=== PATIENT | male | born 1950 | race Caucasian/White ===

== ENCOUNTER 2020-06-12 13:02 | Inpatient (IN) ==
--- NOTE | 2020-06-12 15:11 | Emergency Department Note ---
Impression & Plan Cirrhosis, Ascites, Hyperbilirubinemia, Transaminitis, JOHANN (acute kidney injury), Leukocytosis ED Provider Note NAME: LUIGI GREEN AGE: 70 SEX: M : 1950 ARRIVES VIA: Walk-In INFORMANT: Patient ED PROVIDER(S): Chucky Herrera DO CHIEF COMPLAINT: Abdominal swelling HPI: Patient is a 70-year-old male who presents to the ER for swelling in his abdomen and turning yellow. Notes the swelling has been present for the past 1.5 to 2 weeks. He has had some increased shortness of breath. He notes that he used to drink about 1-2 beers a day intermittently for several years. He drank no more than that. He denies any headache or change in vision. No chest pain. Admits to abdominal fullness but no pain. No dysuria urgency or frequency. He does admit to feeling weak and rundown. No recent trips or travel. No cough or runny nose. No loss of taste or smell. No dark tarry stools. No bright red blood per rectum. No vomiting blood. ROS: See above HPI for pertinent positives & negatives. A total of 10 systems reviewed and were otherwise negative. PAST MEDICAL HISTORY:See Below PAST SURGICAL HISTORY:See Below FAMILY HISTORY:See Below SOCIAL HISTORY:See Below HOME MEDICATIONS:See Below ALLERGIES:See Below VITALS:See Below PHYSICAL EXAMINATION: GENERAL: Sitting up in bed, alert, well appearing, well nourished, no distress, non-toxic EYE EXAM: normal conjunctiva. PERRL and EOM's grossly intact. OROPHARYNX: mask in place NECK: supple, no nuchal rigidity, no adenopathy, non-tender LUNGS: Clear to auscultation. Normal chest wall mechanics HEART: no murmurs, S1 normal and S2 normal ABDOMEN: Full and distended but nontender, positive fluid wave, normo-active bowel sounds, no rebound or guarding. UPPER EXTREMITIES: upper extremities are grossly normal. LOWER EXTREMITIES: No pitting edema. NEURO EXAM: Normal sensorium, cranial nerves II-XII grossly intact, normal speech, no gross weakness of arms, no gross weakness of legs. MEDICAL DECISION MAKING: Patient is a 70-year-old gentleman that presents the ER for swelling of his belly associated with yellow appearance. IV was established blood work was obtained. Labs show a leukocytosis of 24,000. No significant anemia. BMP with mild hyponatremia and hypokalemia. Creatinine was elevated 2.1 over the baseline of 1. Lactate was normal. T bili was 15 and direct bili was 10. AST of 150. ALT was normal. Troponin negative. Covid was negative. CT abdomen pelvis shows a distended abdomen with free fluid as well as sludge in the gallbladder. Patient was given a dose of IV Zosyn. He is not febrile. He was updated bedside. I did perform a diagnostic paracentesis at bedside. No signs of infection as white cells are low. Triage Nursing notes reviewed. Prior medical records reviewed Vital Signs: reviewed and remarkable for tachy Differential diagnosis: Differential diagnoses includes but is not limited to gastritis, peptic ulcer disease, GERD, gallbladder disease, pancreatitis, small bowel obstruction, acute coronary syndrome, pericarditis, ischemic bowel, irritable bowel disease, irritable bowel syndrome, appendicitis, diverticulitis, malignancy, hernia, urinary tract infection, torsion, perforation, trauma, infectious. ER treatment provided: See below Diagnostics interpreted by me: ECG: Sinus tachycardia rate of 104 Normal axis Prolonged QTC at 502 Poor baseline septal leads Cardiac Monitoring: An order was placed for continuous cardiac monitoring. The monitor shows a rate of 98 with sinus rhythm. Laboratory studies: As stated above and show below. Imaging studies: CT abdomen pelvis as discussed above Consultation(s): Discussed with Dr. Jesus Pastrana for further evaluation ED COURSE: Procedures: Paracentesis: Verbal consent obtained. The abdomen was prepped with the standard technique. The skin was infiltrated with 1% lidocaine. 20-gauge needle was inserted into the abdomen under ultrasound guidance and 20 mL of yellow fluid was removed. straw colored fluid obtained without difficulty. Pt. tolerated the procedure. Sterile dressing applied. No complications. Critical Care: None Past Med/Surg History Social History Smoking Status: Former smoker Tobacco Type: Smokeless Tobacco (Dip or Chew) Preferred Language: Chinese Feels Safe at Home: Yes Allergies Allergies Allergy/AdvReac Type Severity Reaction Status Date / Time No Known Allergies Allergy Verified 06/12/20 20:01 Home Meds Home Medications Medication Instructions Recorded Confirmed omega-3 fatty acids [Fish Oil] 0 mg PO QAM 06/12/20 06/12/20 vitamin A 0 unit PO DAILY 06/12/20 06/12/20 Results & Data (ED) Vital Signs Vital Signs - 24 hr 06/12/20 14:03 06/12/20 15:06 06/12/20 15:33 Temperature 36.5 C Temperature Source Oral Pulse Rate 115 H Pulse Rate [Apical] 105 H Pulse Rhythm Regular Pulse Rhythm [Apical] Regular Pulse Strength Normal Pulse Strength [Apical] Normal Respiratory Rate 22 20 Respiratory Effort / Characteristics Non-Labored Spontaneous Non-Labored Spontaneous Respiratory Depth Normal Normal Respiratory Pattern Regular Regular Blood Pressure 111/77 Blood Pressure [Left Arm] 118/76 Blood Pressure Mean 88 Blood Pressure Mean [Left Arm] 90 Blood Pressure Position Sitting Blood Pressure Position [Left Arm] Sitting Pulse Oximetry 96 97 96 Oxygen Delivery Method Room Air Room Air Room Air Sepsis Recent Fever Within 48 Hours No Sepsis New/Unexplained Change in Mental Status No Sepsis Action Taken by Nursing No Action Required 06/12/20 17:45 06/12/20 19:00 06/12/20 20:11 Temperature 36.8 C Temperature Source Oral Pulse Rate Pulse Rate [Apical] 105 H 100 H 95 H Pulse Rhythm Pulse Rhythm [Apical] Regular Pulse Strength Pulse Strength [Apical] Normal Respiratory Rate 22 18 22 Respiratory Effort / Characteristics Non-Labored Spontaneous Respiratory Depth Normal Respiratory Pattern Regular Blood Pressure Blood Pressure [Left Arm] 116/80 102/71 103/75 Blood Pressure Mean Blood Pressure Mean [Left Arm] 92 81 84 Blood Pressure Position Blood Pressure Position [Left Arm] Sitting Pulse Oximetry 95 97 95 Oxygen Delivery Method Room Air Room Air Room Air Sepsis Recent Fever Within 48 Hours Sepsis New/Unexplained Change in Mental Status Sepsis Action Taken by Nursing 06/12/20 20:26 06/12/20 20:41 Temperature 36.5 C 36.7 C Temperature Source Oral Oral Pulse Rate Pulse Rate [Apical] 93 H 96 H Pulse Rhythm Pulse Rhythm [Apical] Pulse Strength Pulse Strength [Apical] Respiratory Rate 22 24 Respiratory Effort / Characteristics Respiratory Depth Respiratory Pattern Blood Pressure Blood Pressure [Left Arm] 126/82 114/86 Blood Pressure Mean Blood Pressure Mean [Left Arm] 96 95 Blood Pressure Position Blood Pressure Position [Left Arm] Pulse Oximetry 94 96 Oxygen Delivery Method Room Air Room Air Sepsis Recent Fever Within 48 Hours Sepsis New/Unexplained Change in Mental Status Sepsis Action Taken by Nursing Laboratory Data Result diagrams: 06/12/20 15:14 06/12/20 15:14 Lab Results 11/23/20 11/23/20 11/23/20 Range/Units 15:14 15:14 15:14 WBC 24.37 H (4.8-10.8) K/uL RBC 4.22 L (4.7-6.1) M/uL Hgb 14.3 (14.0-18.0) g/dL Hct 40.9 L (42-52) % MCV 96.9 (80-100) fL MCH 33.9 (25-34) pg MCHC 35.0 (32-36) g/dL RDW Std Deviation 64.0 H (36.4-46.3) fL RDW Coeff of Pily 18.2 H (11.5-14.5) % Plt Count 236 (130-400) K/uL MPV 10.7 H (7.4-10.4) fL Immature Gran % (Auto) 0.5 % Neut % (Auto) 88.2 % Lymph % (Auto) 5.1 % [place] % (Auto) 5.9 % Eos % (Auto) 0.2 % Baso % (Auto) 0.1 % Neut # (Auto) 21.47 H (1.4-6.5) K/uL Lymph # (Auto) 1.25 (1.2-3.4) K/uL [place] # (Auto) 1.44 H (0.11-0.59) K/uL Eos # (Auto) 0.06 (0-0.5) K/uL Baso # (Auto) 0.03 (0-0.2) K/uL Immature Gran # (Auto) 0.12 H (0.00-0.02) K/uL Target Cells 1+ Echinocytes 1+ PT 16.1 H (9.0-12.0) Seconds INR 1.6 H (0.9-1.1) Sodium 133 L (136-145) mmol/L Potassium 3.4 L (3.5-5.1) mmol/L Chloride 95 L (98-107) mmol/L Carbon Dioxide 29 (21-32) mmol/L Anion Gap 9.0 (3-11) BUN 44 H (7-18) mg/dl Creatinine 2.10 H (0.6-1.4) mg/dl Est Cr Clr Drug Dosing 35.9 ml/min Est GFR ( Amer) 36.1 Est GFR (Non-Af Amer) 31.2 BUN/Creatinine Ratio 20.8 H (10-20) Glucose 109 H (70-99) mg/dl Lactate (0.4-2.0) mmol/L Calcium 8.5 (8.5-10.1) mg/dl Iron (35-175) mcg/dl Transferrin (200-360) mg/dl Transferrin % Sat (20-50) % Ferritin (8-388) ng/ml Total Bilirubin 15.0 H (0.2-1) mg/dl Direct Bilirubin (0-0.2) mg/dl AST 150 H (15-37) U/L ALT 56 (12-78) U/L Alkaline Phosphatase 256 H (45-117) U/L Total Creatine Kinase (39-308) U/L Troponin I < 0.015 (0-0.045) ng/ml Total Protein 7.5 (6.4-8.2) gm/dl Albumin 1.8 L (3.4-5.0) gm/dl Globulin 5.7 H (2.5-4.0) gm/dl Albumin/Globulin Ratio 0.3 L (0.9-2) Lipase 135 (73-393) U/L TSH (0.300-4.500) uIu/ml Free T4 (0.8-1.6) ng/dl Urine Color Urine Appearance (Clear) Urine pH (4.5-7.5) Ur Specific [place] (1.000-1.030) Urine Protein (Negative) Urine Glucose (UA) (Negative) Urine Ketones (Negative) Urine Blood (Negative) Urine Nitrite (Negative) Urine Bilirubin (Negative) Urine Urobilinogen (Negative) Ur Leukocyte Esterase (Negative) Urine WBC (Auto) (0-5) /hpf Urine RBC (Auto) (0-4) /hpf U Hyaline Cast (Auto) (0-5) /lpf U Epithel Cells (Auto) (0-5) /lpf Urine Bacteria (Auto) (Negative) Fluid Neutrophils % % Fluid Lymphocytes % % Fluid Eosinophils % % Fluid Basophils % % Fluid Meso/Macro/[place] % % Peritoneal Color Peritoneal Appearance Peritoneal WBC (0-300) /ul Peritoneal RBC /uL Peritoneal Tot Protein g/dl Peritoneal Albumin g/dl Urine Opiates Screen (Neg) Ur Methadone, Qual (Neg) Acetaminophen (10-30) ug/ml Urine Barbiturates (Neg) Ur Phencyclidine (PCP) (Neg) U Amphetamin/Meth Scrn (Neg) MDMA (Ecstasy) Screen (Neg) U Benzodiazepines Scrn (Neg) Ur Cocaine Metabolite (Neg) U Marijuana (THC) Screen (Neg) Ethyl Alcohol mg/dL (0-3) mg/dl Hep Bs Antigen (Neg) Hepatitis C Antibody (Neg) SARS-CoV-2 Ag (Rapid) (Negative) 06/12/20 06/12/20 06/12/20 Range/Units 15:14 18:08 18:08 WBC (4.8-10.8) K/uL RBC (4.7-6.1) M/uL Hgb (14.0-18.0) g/dL Hct (42-52) % MCV (80-100) fL MCH (25-34) pg MCHC (32-36) g/dL RDW Std Deviation (36.4-46.3) fL RDW Coeff of Pily (11.5-14.5) % Plt Count (130-400) K/uL MPV (7.4-10.4) fL Immature Gran % (Auto) % Neut % (Auto) % Lymph % (Auto) % [place] % (Auto) % Eos % (Auto) % Baso % (Auto) % Neut # (Auto) (1.4-6.5) K/uL Lymph # (Auto) (1.2-3.4) K/uL [place] # (Auto) (0.11-0.59) K/uL Eos # (Auto) (0-0.5) K/uL Baso # (Auto) (0-0.2) K/uL Immature Gran # (Auto) (0.00-0.02) K/uL Target Cells Echinocytes PT (9.0-12.0) Seconds INR (0.9-1.1) Sodium (136-145) mmol/L Potassium (3.5-5.1) mmol/L Chloride (98-107) mmol/L Carbon Dioxide (21-32) mmol/L Anion Gap (3-11) BUN (7-18) mg/dl Creatinine (0.6-1.4) mg/dl Est Cr Clr Drug Dosing ml/min Est GFR ( Amer) Est GFR (Non-Af Amer) BUN/Creatinine Ratio (10-20) Glucose (70-99) mg/dl Lactate (0.4-2.0) mmol/L Calcium (8.5-10.1) mg/dl Iron 46 (35-175) mcg/dl Transferrin 81 L (200-360) mg/dl Transferrin % Sat 40 (20-50) % Ferritin 1277.6 H (8-388) ng/ml Total Bilirubin (0.2-1) mg/dl Direct Bilirubin 10.7 H (0-0.2) mg/dl AST (15-37) U/L ALT (12-78) U/L Alkaline Phosphatase (45-117) U/L Total Creatine Kinase 32 L (39-308) U/L Troponin I (0-0.045) ng/ml Total Protein (6.4-8.2) gm/dl Albumin (3.4-5.0) gm/dl Globulin (2.5-4.0) gm/dl Albumin/Globulin Ratio (0.9-2) Lipase (73-393) U/L TSH 7.960 H (0.300-4.500) uIu/ml Free T4 1.36 (0.8-1.6) ng/dl Urine Color Urine Appearance (Clear) Urine pH (4.5-7.5) Ur Specific [place] (1.000-1.030) Urine Protein (Negative) Urine Glucose (UA) (Negative) Urine Ketones (Negative) Urine Blood (Negative) Urine Nitrite (Negative) Urine Bilirubin (Negative) Urine Urobilinogen (Negative) Ur Leukocyte Esterase (Negative) Urine WBC (Auto) (0-5) /hpf Urine RBC (Auto) (0-4) /hpf U Hyaline Cast (Auto) (0-5) /lpf U Epithel Cells (Auto) (0-5) /lpf Urine Bacteria (Auto) (Negative) Fluid Neutrophils % % Fluid Lymphocytes % % Fluid Eosinophils % % Fluid Basophils % % Fluid Meso/Macro/[place] % % Peritoneal Color Peritoneal Appearance Peritoneal WBC (0-300) /ul Peritoneal RBC /uL Peritoneal Tot Protein g/dl Peritoneal Albumin g/dl Urine Opiates Screen (Neg) Ur Methadone, Qual (Neg) Acetaminophen (10-30) ug/ml Urine Barbiturates (Neg) Ur Phencyclidine (PCP) (Neg) U Amphetamin/Meth Scrn (Neg) MDMA (Ecstasy) Screen (Neg) U Benzodiazepines Scrn (Neg) Ur Cocaine Metabolite (Neg) U Marijuana (THC) Screen (Neg) Ethyl Alcohol mg/dL < 3.0 (0-3) mg/dl Hep Bs Antigen Neg (Neg) Hepatitis C Antibody Neg (Neg) SARS-CoV-2 Ag (Rapid) (Negative) 06/12/20 06/12/20 06/12/20 Range/Units 18:08 18:16 21:00 WBC (4.8-10.8) K/uL RBC (4.7-6.1) M/uL Hgb (14.0-18.0) g/dL Hct (42-52) % MCV (80-100) fL MCH (25-34) pg MCHC (32-36) g/dL RDW Std Deviation (36.4-46.3) fL RDW Coeff of Pily (11.5-14.5) % Plt Count (130-400) K/uL MPV (7.4-10.4) fL Immature Gran % (Auto) % Neut % (Auto) % Lymph % (Auto) % [place] % (Auto) % Eos % (Auto) % Baso % (Auto) % Neut # (Auto) (1.4-6.5) K/uL Lymph # (Auto) (1.2-3.4) K/uL [place] # (Auto) (0.11-0.59) K/uL Eos # (Auto) (0-0.5) K/uL Baso # (Auto) (0-0.2) K/uL Immature Gran # (Auto) (0.00-0.02) K/uL Target Cells Echinocytes PT (9.0-12.0) Seconds INR (0.9-1.1) Sodium (136-145) mmol/L Potassium (3.5-5.1) mmol/L Chloride (98-107) mmol/L Carbon Dioxide (21-32) mmol/L Anion Gap (3-11) BUN (7-18) mg/dl Creatinine (0.6-1.4) mg/dl Est Cr Clr Drug Dosing ml/min Est GFR ( Amer) Est GFR (Non-Af Amer) BUN/Creatinine Ratio (10-20) Glucose (70-99) mg/dl Lactate 2.0 (0.4-2.0) mmol/L Calcium (8.5-10.1) mg/dl Iron (35-175) mcg/dl Transferrin (200-360) mg/dl Transferrin % Sat (20-50) % Ferritin (8-388) ng/ml Total Bilirubin (0.2-1) mg/dl Direct Bilirubin (0-0.2) mg/dl AST (15-37) U/L ALT (12-78) U/L Alkaline Phosphatase (45-117) U/L Total Creatine Kinase (39-308) U/L Troponin I (0-0.045) ng/ml Total Protein (6.4-8.2) gm/dl Albumin (3.4-5.0) gm/dl Globulin (2.5-4.0) gm/dl Albumin/Globulin Ratio (0.9-2) Lipase (73-393) U/L TSH (0.300-4.500) uIu/ml Free T4 (0.8-1.6) ng/dl Urine Color Urine Appearance (Clear) Urine pH (4.5-7.5) Ur Specific [place] (1.000-1.030) Urine Protein (Negative) Urine Glucose (UA) (Negative) Urine Ketones (Negative) Urine Blood (Negative) Urine Nitrite (Negative) Urine Bilirubin (Negative) Urine Urobilinogen (Negative) Ur Leukocyte Esterase (Negative) Urine WBC (Auto) (0-5) /hpf Urine RBC (Auto) (0-4) /hpf U Hyaline Cast (Auto) (0-5) /lpf U Epithel Cells (Auto) (0-5) /lpf Urine Bacteria (Auto) (Negative) Fluid Neutrophils % % Fluid Lymphocytes % % Fluid Eosinophils % % Fluid Basophils % % Fluid Meso/Macro/[place] % % Peritoneal Color Peritoneal Appearance Peritoneal WBC (0-300) /ul Peritoneal RBC /uL Peritoneal Tot Protein g/dl Peritoneal Albumin g/dl Urine Opiates Screen Neg (Neg) Ur Methadone, Qual Neg (Neg) Acetaminophen (10-30) ug/ml Urine Barbiturates Neg (Neg) Ur Phencyclidine (PCP) Neg (Neg) U Amphetamin/Meth Scrn Neg (Neg) MDMA (Ecstasy) Screen Neg (Neg) U Benzodiazepines Scrn Neg (Neg) Ur Cocaine Metabolite Neg (Neg) U Marijuana (THC) Screen Neg (Neg) Ethyl Alcohol mg/dL (0-3) mg/dl Hep Bs Antigen (Neg) Hepatitis C Antibody (Neg) SARS-CoV-2 Ag (Rapid) (Negative) 06/12/20 06/12/20 06/12/20 Range/Units 21:00 Unknown Unknown WBC (4.8-10.8) K/uL RBC (4.7-6.1) M/uL Hgb (14.0-18.0) g/dL Hct (42-52) % MCV (80-100) fL MCH (25-34) pg MCHC (32-36) g/dL RDW Std Deviation (36.4-46.3) fL RDW Coeff of Pily (11.5-14.5) % Plt Count (130-400) K/uL MPV (7.4-10.4) fL Immature Gran % (Auto) % Neut % (Auto) % Lymph % (Auto) % [place] % (Auto) % Eos % (Auto) % Baso % (Auto) % Neut # (Auto) (1.4-6.5) K/uL Lymph # (Auto) (1.2-3.4) K/uL [place] # (Auto) (0.11-0.59) K/uL Eos # (Auto) (0-0.5) K/uL Baso # (Auto) (0-0.2) K/uL Immature Gran # (Auto) (0.00-0.02) K/uL Target Cells Echinocytes PT (9.0-12.0) Seconds INR (0.9-1.1) Sodium (136-145) mmol/L Potassium (3.5-5.1) mmol/L Chloride (98-107) mmol/L Carbon Dioxide (21-32) mmol/L Anion Gap (3-11) BUN (7-18) mg/dl Creatinine (0.6-1.4) mg/dl Est Cr Clr Drug Dosing ml/min Est GFR ( Amer) Est GFR (Non-Af Amer) BUN/Creatinine Ratio (10-20) Glucose (70-99) mg/dl Lactate (0.4-2.0) mmol/L Calcium (8.5-10.1) mg/dl Iron (35-175) mcg/dl Transferrin (200-360) mg/dl Transferrin % Sat (20-50) % Ferritin (8-388) ng/ml Total Bilirubin (0.2-1) mg/dl Direct Bilirubin (0-0.2) mg/dl AST (15-37) U/L ALT (12-78) U/L Alkaline Phosphatase (45-117) U/L Total Creatine Kinase (39-308) U/L Troponin I (0-0.045) ng/ml Total Protein (6.4-8.2) gm/dl Albumin (3.4-5.0) gm/dl Globulin (2.5-4.0) gm/dl Albumin/Globulin Ratio (0.9-2) Lipase (73-393) U/L TSH (0.300-4.500) uIu/ml Free T4 (0.8-1.6) ng/dl Urine Color [place] Urine Appearance Turbid A (Clear) Urine pH 5.0 (4.5-7.5) Ur Specific [place] 1.024 (1.000-1.030) Urine Protein Trace H (Negative) Urine Glucose (UA) Negative (Negative) Urine Ketones Negative (Negative) Urine Blood Negative (Negative) Urine Nitrite Positive A (Negative) Urine Bilirubin 3+ H (Negative) Urine Urobilinogen Negative (Negative) Ur Leukocyte Esterase 1+ H (Negative) Urine WBC (Auto) 10-30 H (0-5) /hpf Urine RBC (Auto) 10-30 H (0-4) /hpf U Hyaline Cast (Auto) 1-5 (0-5) /lpf U Epithel Cells (Auto) 10-20 H (0-5) /lpf Urine Bacteria (Auto) Negative (Negative) Fluid Neutrophils % 16 % Fluid Lymphocytes % 5 % Fluid Eosinophils % 0 % Fluid Basophils % 0 % Fluid Meso/Macro/[place] % 79 % Peritoneal Color YELLOW Peritoneal Appearance CLEAR Peritoneal WBC 128 (0-300) /ul Peritoneal RBC < 3000 /uL Peritoneal Tot Protein 0.9 g/dl Peritoneal Albumin < 0.6 g/dl Urine Opiates Screen (Neg) Ur Methadone, Qual (Neg) Acetaminophen (10-30) ug/ml Urine Barbiturates (Neg) Ur Phencyclidine (PCP) (Neg) U Amphetamin/Meth Scrn (Neg) MDMA (Ecstasy) Screen (Neg) U Benzodiazepines Scrn (Neg) Ur Cocaine Metabolite (Neg) U Marijuana (THC) Screen (Neg) Ethyl Alcohol mg/dL (0-3) mg/dl Hep Bs Antigen (Neg) Hepatitis C Antibody (Neg) SARS-CoV-2 Ag (Rapid) Negative (Negative) Administered Medications Discontinued Medications Piperacillin Sod/Tazobactam Sod (Zosyn) 4.5 gm in 120 mls @ 240 mls/hr IV NOW ONE Stop: 06/12/20 17:21 Last Infusion: 06/12/20 19:11 Dose: 0 mls/hr Documented by: [id number] Admin: 06/12/20 17:45 Dose: 240 mls/hr Documented by: [id number] Phytonadione 5 mg/ Sodium (Chloride) 50.5 mls @ 101 mls/hr IV ONE ONE Stop: 06/12/20 20:29 Last Infusion: 06/12/20 20:47 Dose: 0 mls/hr Documented by: [id number] Admin: 06/12/20 20:13 Dose: 101 mls/hr Documented by: [id number] Discharge Plan Visit Data Chief Complaint: Abdominal Pain Stated Complaint: BLOOD IN URINE, RETAINING FLUIDS ED Provider: Chucky Herrera Discharge Problem: Cirrhosis, Ascites, Hyperbilirubinemia, Transaminitis, JOHANN (acute kidney injury), Leukocytosis Forms Stand Alone Forms: My [facility] Prescriptions Prescriptions: No Action vitamin A 8,000 unit Capsule 0 unit PO DAILY RF: 0 Fish Oil Capsule 0 mg PO QAM RF: 0
[2020-06-12 15:25] LABS: Hematocrit (blood only) 40.9 % (42-52); Hemoglobin 14.3 g/dL (14.0-18.0); Mean Corpuscular Hemoglobin 33.9 pg (25-34); Mean Corpuscular Volume 96.9 fL (80-100); Mean Platelet Volume 10.7 fL (7.4-10.4); Platelet Count 236 K/uL (130-400); RDW Coefficient of Variation 18.2 % (11.5-14.5); Red Blood Count 4.22 M/uL (4.7-6.1); White Blood Count 24.37 K/uL (4.8-10.8)
[2020-06-12 15:36] LABS: INR 1.6 (0.9-1.1); Prothrombin Time 16.1 Seconds (9.0-12.0)
[2020-06-12 15:53] LABS: Alanine Aminotransferase 56 U/L (12-78); Albumin Globulin Ratio 0.3 (0.9-2); Albumin Level 1.8 gm/dl (3.4-5.0); Alkaline Phosphatase 256 U/L (45-117); Aspartate Aminotransferase 150 U/L (15-37); BUN Creatinine Ratio 20.8 (10-20); Blood Urea Nitrogen 44 mg/dl (7-18); Calcium 8.5 mg/dl (8.5-10.1); Carbon Dioxide 29 mmol/L (21-32); Chloride 95 mmol/L (98-107); Creatinine Clr Calc Pharmacy 35.9 ml/min; Est GFR (African American) 36.1; Est GFR (Non-African American) 31.2; Globulin 5.7 gm/dl (2.5-4.0); Glucose 109 mg/dl (70-99); Lipase 135 U/L (73-393); Potassium 3.4 mmol/L (3.5-5.1); Sodium 133 mmol/L (136-145); Total Protein 7.5 gm/dl (6.4-8.2); Troponin I < 0.015 ng/ml (0-0.045)
[2020-06-12 16:01] LABS: Basophils # (auto) 0.03 K/uL (0-0.2); Basophils % (auto) 0.1 %; Echinocytes 1+; Eosinophils # (auto) 0.06 K/uL (0-0.5); Eosinophils % (auto) 0.2 %; Immature Granulocytes # (auto) 0.12 K/uL (0.00-0.02); Immature Granulocytes % (auto) 0.5 %; Lymphocytes # (auto) 1.25 K/uL (1.2-3.4); Lymphocytes % (auto) 5.1 %; Monocytes # (auto) 1.44 K/uL (0.11-0.59); Monocytes % (auto) 5.9 %; Neutrophils # (auto) 21.47 K/uL (1.4-6.5); Neutrophils % (auto) 88.2 %; Target Cells 1+
[2020-06-12] MEDS ORDERED: PIPERACILL/TAZOBAC CONSULT ACTIVE PRN ×2 (16:52→23:56)
[2020-06-12] MEDS ORDERED: PIPERACILLIN/TAZOBACTAM 4.5 GM/120 ML BAG IV ONE (16:52)
--- NOTE | 2020-06-12 17:00 | CT Scan Report ---
CT SCAN OF THE ABDOMEN AND PELVIS WITHOUT IV CONTRAST CLINICAL HISTORY: Generalized abdominal pain. Jaundice. COMPARISON STUDY: No priors. TECHNIQUE: CT scan of the abdomen and pelvis is performed from the lung bases to the proximal femora. Images are reviewed in the axial, sagittal, and coronal planes. IV contrast was not administered for this examination. Note that the examination was performed in suboptimal fashion without oral and IV contrast. A dose lowering technique was utilized adhering to the principles of ALARA. CT DOSE: 913.60 mGycm FINDINGS: Lung bases: The heart is normal in size and without pericardial effusion. The coronary arteries are d ensely calcified. There is trace right pleural effusion with right basilar atelectasis. Esophageal va rices are noted. There is a small hiatal hernia which also contains ascitic fluid. Liver: The unenhanced liver is cirrhotic in morphology and heterogeneous in attenuation. Attenuation is diffusely diminished indicating steatosis. There is nodularity of the hepatic surface contour. The re is no intrahepatic biliary ductal dilatation. There is recanalization of the periumbilical vein. Gallbladder: Hyperdense material filled the gallbladder, likely resenting stones and sludge. There is no CT evidence of acute cholecystitis. Spleen: Normal in size and attenuation. Pancreas: The unenhanced pancreas is moderately atrophic and grossly unremarkable. Adrenal glands: Unremarkable. Kidneys: The unenhanced kidneys are normal in size and without hydronephrosis. There are no renal kailash culi identified. A 1.5 cm exophytic cyst is noted on the left. Abdominal vasculature: The abdominal aorta is normal in course and caliber noting moderate to advance d atherosclerotic calcification. Bowel: There is no bowel obstruction. The appendix is not visualized. Peritoneum: There is a moderate volume of abdominopelvic ascites. No intraperitoneal free air is seen . Lymphadenopathy: None. Pelvic viscera: The bladder, prostate, and seminal vesicles are normal as visualized. Skeletal structures: The skeletal structures are osteopenic. There is mild lumbosacral spondylosis. A hemitransitional left lumbosacral segment is incidentally noted. No lytic or blastic lesions are see n. IMPRESSION: 1. The liver is cirrhotic in morphology with evidence of severe steatosis. 2. Esophageal varices, recanalization of the periumbilical vein, and a moderate volume of abdominopel hemant ascites indicate portal hypertension. 3. Trace right pleural effusion. 4. Hyperdense material filling the gallbladder likely represents stones and sludge. There is no CT ev idence of acute cholecystitis. 5. Additional findings as above. ACT 112: Negative or not required by law. Electronically signed by: Indra Lopez M.D. 06/12/2020 4:59 PM
--- NOTE | 2020-06-12 18:42 | History & Physical Report ---
Date of Service June 12, 2020 Assessment & Plan (1) Ascites: David Kowalski is a 70 yo male with no significant PMHx who presented to [facility] ED on 06/12/2020 with ~2 weeks of worsening generalized abdominal distension, shortness of breath, fatigue and jaundice - new diagnosis of cirrhosis on abdominal imaging and WBC 24.4 - suspicious for SBP. Ascites - new, relatively-acute onset abdominopelvic ascites confirmed via CT abd/pelv, WBC 24.4 with neutrophilic dominance and left shift, Lactate 2.0 - other than mild tachycardia, afebrile and hemodynamically stable - diagnostic paracentesis not indicative of SBP - blood cx pending - GI consulted - Zosyn x1 given in ED, plan to continue empiric coverage for now - trend CBC Cirrhosis - new diagnosis of cirrhosis via CT abd/pelv: cirrhotic liver, severe steatosis, esophageal varices, recanalization of pericumbilical vein, moderate ascites - MELD score of 30 (INR 1.6, TBili 15.0, Cr 2.1) - patient denies alcohol abuse and EtOH negative in the ED, UDS estrella-negative - no PMHx suggestive of TILLEY - iron/transferrin WNL - unlikely to be HH - broad differential including: TILLEY, alcoholic hepatitis, infectious hepatitis, autoimmune hepatitis, Leonardo disease, alpha-1 antitrypsin deficiency - ordered hepatitis panel, AMA, LES, AFP, alpha-1 antitrypsin, ceruloplasmin - Phytonadione 5mg IV x1 given - follow paracentesis results as above - trend CMP, coags UTI - new-onset hematuria x2 weeks along with other symptoms, per patient - UA positive for nitrite, 1+ LE, 10-30 WBC - Urine cx pending - suspect UTI, continue empiric Zosyn IV for now as mentioned above, follow urine cx to adjust abx coverage Transaminitis - AST 150, ALT 56 - patient denies alcohol abuse and EtOH negative in the ED - suspect 2/2 cirrhosis +/- SBP - trend CMP as mentioned above Direct Hyperbilirubinemia - TBili 15.0, DBili 10.7 - CT abd/pelv showed gallbladder stones vs sludge without CT evidence of acute cholecystitis - possible obstructive etiology - GI consulted as above - would consider MRCP during admission, will defer to primary team/GI JOHANN - Cr 2.1, ratio >20 - no previous values to determine baseline although patient denies significant PMHx - suspect pre-renal injury 2/2 sepsis vs SBP - continue Zosyn as mentioned above - no IVF for now given severe ascites - trend CMP as above Subclinical Hypothyroidism - TSH 7.96, Free T4 1.36 - insufficient data to treat - recommend f/u as outpatient FEN/GI: regular DVT Prophylaxis: no pharmacologic ppx for now, as anticoagulated 2/2 cirrhosis Code Status: Full code Disposition: PCU with tele (2) Cirrhosis: (3) Hyperbilirubinemia: (4) Transaminitis: (5) JOHANN (acute kidney injury): History of Present Illness Chief Complaint: abdominal swelling, SOB, yellow skin Primary Care Provider: NO PCP David Kowalski is a 70 yo male with no significant PMHx who presented to [facility] ED on 06/12/2020 with ~2 weeks of worsening generalized abdominal distension, shortness of breath, fatigue and jaundice. Also reports hematuria x2 weeks without dysuria, increased urinary frequency/urgency, fever/chills, flank pain. The patient denies ever experiencing these symptoms before. Lives in the [facility] and has had Lyme disease in the past (most recently 1 year ago - treated with abx) but denies recent tick bites and reports that he checks for ticks every time after going outside - denies myalgias/joint aches. Denies chest pain, dizziness. Denies N/V/hematemesis or abdominal pain. Denies melena, hematochezia, easy bleeding/bruising. PMHx: denies HTN, DM, HLD, heart/liver/lung/kidney disease Medications: multivitamins as prescribed and fish oil, denies other supplements SurgeryHx: neck surgery 2/2 mechanical fall >30 years ago FamilyHx: father was an alcoholic and smoked tobacco, denies h/o liver/lung/heart disease or cancers SocialHx: lives with girlfriend, proficient in ADLs/iADLs. Denies alcohol use since 02/20/2020 and reports only minimal drinking socially before that. Denies current or past smoking and denies other drug use. Allergies Allergy/AdvReac Type Severity Reaction Status Date / Time No Known Allergies Allergy Verified 06/12/20 20:01 Home Medications Medication Instructions Recorded Confirmed Type omega-3 fatty acids [Fish Oil] 0 mg PO QAM 06/12/20 06/12/20 History vitamin A 0 unit PO DAILY 06/12/20 06/12/20 History Past Med/Surg History Social History Smoking Status: Former smoker Tobacco Type: Smokeless Tobacco (Dip or Chew) Hx Substance Use: No Preferred Language: Greenlandic Communication Ability: Effective Rigging Helper Required: No Beliefs That Will Affect Care: None Current Living Situation: Alone Other Information That Helps Us Care for You: No Feels Safe at Home: Yes Assistive Devices: None Review of Systems Constitutional: + fatigue; no fever, no chills and no weight loss Eyes: no worsening vision Ear, Nose, Mouth, Throat: no hearing loss Respiratory: + dyspnea; no cough and no hemoptysis Cardiovascular: no chest pain and no palpitations Gastrointestinal: no abdominal pain, no nausea, no vomiting, no coffee ground emesis and no diarrhea/loose stools Genitourinary: + hematuria; no dysuria, no urinary frequency and no flank pain Musculoskeletal: no back pain, no myalgia and no body aches Integumentary: no rash Neurologic: no falls and no syncope Psychiatric: no behavioral changes Hematologic / Lymphatic: no easy bleeding and no easy bruising Physical Exam Constitutional: well developed and + thin; no acute distress Eyes: scleral icterus Neck: trachea midline, no thyromegaly Respiratory: normal respiratory effort, lungs clear to auscultation Cardiovascular: Rate/Rhythm: regular rhythm and + tachycardic Heart Sounds: normal S2; no murmur Gastrointestinal (Abdomen): Inspection/Auscultation: + abdomen distended, + caput medusae present and + hypoactive bowel sounds Percussion/Palpation: + ascites, + fluid wave and + abdomen firm; abdomen nontender, no guarding and abdomen not rigid Skin: + jaundice Psychiatric: A+Ox3, euthymic affect Genitourinary: no CVA tenderness Results & Data Results & Data ([facility]) Vital Signs (Past 12 Hours) Vital Signs Temp Pulse Pulse Resp BP BP Pulse Ox 06/12/20 17:45 105 H 22 116/80 95 06/12/20 15:33 96 06/12/20 15:06 105 H 20 118/76 97 06/12/20 14:03 36.5 C 115 H 22 111/77 96 Code Status & VTE Plan Code Status Full code VTE Prophylaxis Plan VTE Prophylaxis will be ordered: No Reason for no VTE drug order: Treatment not indicated Reason for no VTE mechanical prophylaxis: Treatment not indicated Supervising Physician Co-Signing Physician Notes I personally saw and examined the patient. I verified all zepeda points and agree with Resident Physician Dr Weiss with the following exceptions and/or additions: 70 year old male without significant past medical history (although also does not seek routine care) with progressive worsening abdominal distension and jaund ice over the last 2 weeks without abdominal pain or fevers. Associated dysuria but no abdominal or flank pain. No acetaminophen use. Last alcohol use in February. No family history of liver disease. Elevated WBC in ER without alternative infective cause per history or imaging concerning for spontaneous bacterial peritonitis. O/E No acute distress, icteric sclera, jaundiced skin, Abdomen markedly dis tended and taught with secondary venous changes A/P Leukocytosis - Possible SBP - paracentesis performed in ER with WBC WNL and gram stain negative. Dysuria/hematuria concerning for UTI but no pyelonephritis on exam or imaging. Will continue Zosyn empirically pending urine/peritoneal fluids and blood cultures. Jaundice - R factor 1.9 suggests cholestatic picture however no CBD dilatation or pain on palpation. Consult GI for MRCP vs. ERCP. Liver cirrhosis/ascites - unclear etiology, no hepatic encephalopathy to suggest acute liver failure. Labs sent for alpha 1-antitrypsin, LES, anti-mitochondrial Ab, AFP, Ceruloplasmin, viral hepatitis panel and acetaminophen level. JOHANN - Suspected although no prior Cr values available. Avoid excessive fluids overnight due to moderate ascites. Monitor with AM labs. Elevated INR - Vit K 5mg IV to r/o deficiency with obstructive jaundice, however suspect secondary to reduced intrahepatic function with liver cirrhosis. DVT prophylaxis - Pending decision regarding ERCP/paracentesis recommend consider chemical prophylaxis tomorrow. Resident Activity Tracking Resident Involvement: Resident Care Provided Care Provided: Adult Hospital Medicine
[2020-06-12 18:55] LABS: Ferritin 1277.6 ng/ml (8-388); Thyroid Stimulating Hormone 7.96 uIu/ml (0.300-4.500)
[2020-06-12 19:11] LABS: T4 Free Thyroxine 1.36 ng/dl (0.8-1.6)
[2020-06-12 19:20] LABS: Bilirubin Direct 10.7 mg/dl (0-0.2)
--- NOTE | 2020-06-12 19:49 | XRay Report ---
SINGLE VIEW CHEST CLINICAL HISTORY: Dyspnea. FINDINGS: An AP, portable, upright chest radiograph is obtained. No prior studies are available for c omparison at the time of dictation. The examination is degraded by portable technique and patient rot ation. The cardiomediastinal silhouette is unremarkable. There is elevation of the right hemidiaphr agm and bibasilar atelectasis. No airspace consolidation or large pleural effusion is identified. No pneumothorax is seen. The skeletal structures are osteopenic. The bony thorax is grossly intact. IMPRESSION: No active disease in the chest. ACT 112: Negative or not required by law. Electronically signed by: Indra Lopez M.D. 06/12/2020 7:47 PM
[2020-06-12 19:50] LABS: Hepatitis B Surface Antigen Neg (Neg); Hepatitis C IgG 13Yrs+Old_Rflx Neg (Neg)
[2020-06-12] MEDS ORDERED: ONDANSETRON INJ 2 MG/ML 2 ML VIAL IV PRN (19:54)
[2020-06-12] MEDS ORDERED: ACETAMINOPHEN 325 MG TAB PO PRN (19:54)
[2020-06-12] MEDS ORDERED: POLYETHYLENE (MIRALAX) 17 GM PACK PO PRN (19:54)
[2020-06-12] MEDS ORDERED: PHYTONADIONE 5 MG in SODIUM CHLORIDE 0.9% 50 ML IV ONE (20:00)
[2020-06-12 20:39] LABS: Albumin Peritoneal Fluid < 0.6 g/dl; Total Protein Peritoneal Fluid 0.9 g/dl
[2020-06-12 21:12] LABS: Appearance Urine Turbid (Clear); Bacteria Urine Automated Negative (Negative); Blood Urine Negative (Negative); Color Urine Orange; Glucose Urine UA Negative (Negative); Ketones Urine Negative (Negative); Leukocyte Esterase Urine 1+ (Negative); Nitrite Urine Positive (Negative); Protein Urine Trace (Negative); Specific Gravity Urine 1.024 (1.000-1.030); Urobilinogen Urine Negative (Negative)
[2020-06-12 21:21] LABS: Bilirubin Urine 3+ (Negative); Ictotest Urine Positive (Negative)
[2020-06-12 21:28] LABS: Appearance Peritoneal Fluid CLEAR; Basophils, Fluid 0 %; Color Peritoneal Fluid YELLOW; Eosinophils, Fluid 0 %; Lymphocytes, Fluid 5 %; Mono,Macrophage,Mesothelial 79 %; Neutrophils, Fluid 16 %; RBC Peritoneal Fluid (A) < 3000 /uL; WBC Peritoneal Fluid (A) 128 /ul (0-300)
[2020-06-12 21:29] LABS: Amphetamines+Metham, Urine Neg (Neg); Barbiturates, Urine Neg (Neg); Benzodiazepine, Urine Neg (Neg); Cocaine, Urine Neg (Neg); MDMA (Ecstacy), Urine Neg (Neg); Methadone, Urine Neg (Neg); Opiate, Urine Neg (Neg); Phencyclidine, Urine Neg (Neg)
[2020-06-12] MEDS: PIPERACILLIN/TAZOBACTAM 3.375 GM in DEXTROSE 5% 100 ML IV SCH (23:06)
[2020-06-13] MEDS ORDERED: PIPERACILLIN/TAZOBACTAM 3.375 GM in DEXTROSE 5% 100 ML IV SCH (02:00)
[2020-06-13] MEDS: PIPERACILLIN/TAZOBACTAM 3.375 GM in DEXTROSE 5% 100 ML IV SCH ×3 (05:47→23:01)
[2020-06-13 05:51] LABS: Estimated Average Glucose 68 mg/dl
[2020-06-13 05:54] LABS: INR 1.5 (0.9-1.1); Prothrombin Time 15.3 Seconds (9.0-12.0)
[2020-06-13 06:00] LABS: Basophils # (auto) 0.07 K/uL (0-0.2); Basophils % (auto) 0.4 %; Eosinophils # (auto) 0.35 K/uL (0-0.5); Eosinophils % (auto) 1.9 %; Hematocrit (blood only) 35.4 % (42-52); Hemoglobin 12.4 g/dL (14.0-18.0); Immature Granulocytes # (auto) 0.07 K/uL (0.00-0.02); Immature Granulocytes % (auto) 0.4 %; Lymphocytes # (auto) 1.44 K/uL (1.2-3.4); Lymphocytes % (auto) 7.9 %; Mean Corpuscular Hemoglobin 33.8 pg (25-34); Mean Corpuscular Volume 96.5 fL (80-100); Mean Platelet Volume 10.6 fL (7.4-10.4); Monocytes # (auto) 1.37 K/uL (0.11-0.59); Monocytes % (auto) 7.5 %; Neutrophils # (auto) 15.03 K/uL (1.4-6.5); Neutrophils % (auto) 81.9 %; Platelet Count 169 K/uL (130-400); RDW Coefficient of Variation 18.3 % (11.5-14.5); RDW Standard Deviation 64.4 fL (36.4-46.3); Red Blood Count 3.67 M/uL (4.7-6.1); White Blood Count 18.33 K/uL (4.8-10.8)
--- NOTE | 2020-06-13 06:22 | Electrocardiogram Report ---
Test Reason : Blood Pressure : / mmHG Vent. Rate : 104 BPM Atrial Rate : 104 BPM P-R Int : 148 ms QRS Dur : 080 ms QT Int : 382 ms P-R-T Axes : 010 013 013 degrees QTc Int : 502 ms Poor data quality, interpretation may be adversely affected Sinus tachycardia Cannot rule out Anterior infarct , age undetermined Nonspecific T wave abnormality Prolonged QT Abnormal ECG No previous ECGs available Confirmed by Enzo Whyte ([id number]) on 06/13/2020 6:21:45 AM Referred By: REFERRED SELF Confirmed By:Enzo Whyte
[2020-06-13 06:38] LABS: Albumin Globulin Ratio 0.3 (0.9-2); Albumin Level 1.5 gm/dl (3.4-5.0); BUN Creatinine Ratio 21.8 (10-20); Bilirubin,Total 12.9 mg/dl (0.2-1); Calcium 7.5 mg/dl (8.5-10.1); Creatinine Clr Calc Pharmacy 33.4 ml/min; Est GFR (African American) 36.3; Est GFR (Non-African American) 31.4; Globulin 4.6 gm/dl (2.5-4.0); Magnesium 2.5 mg/dl (1.8-2.4); Potassium 3.1 mmol/L (3.5-5.1); Total Protein 6.1 gm/dl (6.4-8.2)
[2020-06-13] MEDS ORDERED: ALBUMIN 25% 12.5 GM/50 ML VIAL IV SCH (10:30)
--- NOTE | 2020-06-13 11:12 | Gastrointestinal Consultation ---
Date of Consultation June 13, 2020 Assessment & Plan (1) Cirrhosis: Pt is a 70 y/o male who presented w jaundice, increasing abd distension and hematuria. Upon eval noted to have new findings of cirrhosis, w signs of portal HTN, ascites, and leukocytosis. Urine & blood cx pending. Etiology of cirrhosis unclear ? related to previous ETOH uses though pt denies abuses. - Cirrhosis workup to r/o acute hepatitis a/b/c, AIH, iron overload, alpha 1 antitrypsin, Leonardo's - Obtain MRCP to r/o biliary obstruction given gallbladder sludge/stone and new jaundice - F/U urine and blood cx, will keep on Zosyn IV for now - U/S paracentesis for therapuetic purpose w Albumin IV replacement. Previous diagnostic paracentesis w/o signs of SBP - 2g Na diet, anticipate starting diuretics once kidney function improves - Avoid ETOH, APAP <2g a day - Will assist w setting GI f/u for cirrhosis care upon his DC (2) Ascites: Supervising Physician Co-Signing Physician Notes Late entry: Patient was seen and examined on 06/13. Her note reflects our findings and plan. History of Present Illness Reason for Consultation: New cirrhosis, ascites, possible SBP Attending Physician: Chucky Burgos, History of Present Illness Pt is a 70 y/o male who presented w new jaundice, fatigue, increasing abd distension, hematuria w/o dysuria, flank pain x 2 weeks. He denies fever, chills, abd pain, n/v, changes in bowel habits including no signs of GI ble eding. Upon evaluation, noted to have elevated WBC 24K, H/H 12/35, PLt 169, PT/INR 15/1.5, BUN/Cr 46/2, LFTs: Tbili 15 AST 150, ALT 50, AP 202, lipase 135, TSH 7. CXR negative. CT abd/pelvis w/o contrast showed cirrhotic liver w severe steatosis and esophageal varices and signs ascites, recanalization of periumbilical vein. Gallbladder w stones and sludge but no signs of cholecystitis. In he ED he had diagnostic paracentesis w no signs of SBP in fluid analysis. He was kept on Zosyn IV, urine and blood cx pending. Pt used to drink ETOH but denies >14 servings a week, denies tobacco, IVDU, tat toos, body piercing. Denies new meds, herbal supplements, or excessive uses of APAP Denies family hx of liver dz, autoimmune dz. Allergies Allergy/AdvReac Type Severity Reaction Status Date / Time No Known Allergies Allergy Verified 06/12/20 20:01 Home Medications Medication Instructions Recorded Confirmed Type omega-3 fatty acids [Fish Oil] 0 mg PO QAM 06/12/20 06/12/20 History vitamin A 0 unit PO DAILY 06/12/20 06/12/20 History Patient History Social History Smoking Status: Former smoker Tobacco Type: Smokeless Tobacco (Dip or Chew) Hx Substance Use: No Preferred Language: Vincentian Communication Ability: Effective Entrepreneur Required: No Beliefs That Will Affect Care: None Current Living Situation: Alone Feels Safe at Home: Yes Assistive Devices: None Review of Systems Review of Systems: All systems reviewed & are unremarkable except as noted in HPI & below Physical Exam Constitutional: WD/WN, vitals as above well groomed, cooperative and comfortable Eyes: PERRL, conjunctivae normal, anicteric sclerae + scleral abnormality (icteric sclera) ENMT: external ear and nose normal, oropharynx normal Respiratory: normal respiratory effort, lungs clear to auscultation Cardiovascular: RRR, no murmur, no edema Gastrointestinal (Abdomen): Inspection/Auscultation: + abdomen distended and + hypoactive bowel sounds Percussion/Palpation: abdomen nontender Skin: no rashes, warm and dry + jaundice Neurologic: Motor/Sensory: no asterixis Psychiatric: A+Ox3, euthymic affect Lymphatic: no lymphedema Results & Data ([facility]) Vital Signs (Past 12 Hours) Vital Signs Temp Pulse Resp BP Pulse Ox 06/13/20 08:24 36.7 C 90 18 106/70 95 06/13/20 04:21 36.5 C 89 18 104/70 95 06/13/20 02:03 92 H 16 108/69 90
[2020-06-13] MEDS: ALBUMIN 25% 12.5 GM/50 ML VIAL IV SCH ×6 (11:32→22:05)
--- NOTE | 2020-06-13 11:33 | Ultrasound Report ---
PARACENTESIS UNDER ULTRASOUND GUIDANCE CLINICAL HISTORY: Cirrhosis and ascites. COMPARISON STUDY: Abdominal CT dated 06/12/2020. PROCEDURE: The risks, benefits, and alternatives to the procedure were discussed with the patient who voiced understanding. Written informed consent was obtained. Following real-time ultrasound localiza tion of a suitable pocket of fluid in the right lower quadrant, the abdomen was prepped and draped in the usual sterile fashion. The skin and soft tissues were anesthetized with 1% lidocaine. The sheath ed paracentesis needle was inserted and approximately 6 liters of dark yellow ascitic fluid was remov ed by vacuum suction. The procedure was well tolerated and without immediate complication. The patien t left the department in satisfactory condition. IMPRESSION: Successful ultrasound-guided paracentesis with removal of approximately 6 liters of ascit ic fluid. ACT 112: Negative or not required by law. Electronically signed by: Indra Lopez M.D. 06/13/2020 11:32 AM
[2020-06-13 12:34] LABS: Vitamin B12 > 2000 pg/ml (193-986)
--- NOTE | 2020-06-13 12:50 | Billing Data ---
Date of Service June 12, 2020 Coding Level of Care Code 36238 Initial Inpt Care Lvl 3
--- NOTE | 2020-06-13 14:29 | Magnetic Resonance Report ---
MR MRCP HISTORY: Elevated total bilirubin. TECHNIQUE: MRCP of the abdomen was performed without contrast according to standard departmental prot ocol. COMPARISON STUDY: Abdomen and pelvis CT 06/12/2020. FINDINGS: 1. Mild motion artifact. This results in suboptimal evaluation. Trace right pleural effusion and a sm all fluid-filled hiatal hernia are again noted. Nodular contour to the liver consistent with cirrhosi s. No definite hepatic or splenic masses. The spleen is mildly enlarged measuring 13 cm in length. Sm all to moderate amount of ascites is present. There are few subcentimeter T2 hyperintense lesions wit hin the liver. These favor small cysts. There is a 1.2 cm T2 hyperintense lesion within the left kidn ey. This also favors a cyst. No hydronephrosis. The gallbladder is mildly distended and appears to be filled with sludge. No definite gallstones. There is mild periportal edema. There is mild mesenteric and peripancreatic edema. This is likely due to the patient's cirrhosis. An acute pancreatitis is co nsidered less likely but not entirely excluded. No retroperitoneal lymphadenopathy. Normal caliber ab dominal aorta. Common bile duct is normal in course and caliber. No filling defects within the common bile duct. The main pancreatic duct is not well visualized but likely normal in caliber. No intrahep atic bile duct dilatation. IMPRESSION: 1. Normal caliber common bile duct. No filling defects to suggest choledocholithiasis. 2. The gallbladder is mildly distended and filled with sludge. No gallbladder wall thickening. 3. Cirrhotic liver with portal hypertension and a small to moderate amount of ascites. 4. Peripancreatic edema is likely due to the cirrhosis. Acute pancreatitis is considered less likely. Recommend correlation with pancreatic enzymes for further evaluation. ACT 112: Negative or not required by law. Electronically signed by: Primitivo Nguyen M.D. 06/13/2020 2:28 PM
[2020-06-13] MEDS ORDERED: POTASSIUM CHLORIDE CRTAB 20 MEQ TABCR PO STA (15:11)
--- NOTE | 2020-06-13 15:19 | Nephrology Consultation ---
Date of Consultation June 13, 2020 Assessment & Plan (1) Renal insufficiency: presenting creatinine and f/u test 2.1; bsaeline unknown. ATN versus hepatorenal syndrome or prerenal; may have some changes in renal function after large volume paracentesis. reported gross hematuria at admission > has orange urine specimen reported w/ bilirubinuria > not particularly c/w gross but c/w microhematuria and could be c/w HRS -avoid nephrotoxins -daily bmp -will order trial of albumin IV > 75 gm/ day for up to 2 days -- already had some albumin for paracentesis -hold off on diuretics for now -ordered protein/creat ratio for urine -f/u pending cxs (NTGD); urine specimen from admission not very c/w UTI > no bacteria for ex; but agree w/ empiric coverage given leukocytosis Present on Admission?: Yes (2) Electrolyte and fluid disorder: w/ ascites and hypokalemia; very mild hypervolemic hyponatremia -for paracentesis today -IV albumin as above -will give 40 po K x 1 Present on Admission?: Yes (3) Cirrhosis: per GI service and primary team; new dx Present on Admission?: Yes History of Present Illness Reason for Consultation: JOHANN, liver cirrhosis Requesting Physician: Dr Serrano Attending Physician: Chucky Burgos, History of Present Illness 70 y/o M whom I'm asked to see for JOHANN and liver cirrhosis after he was admitted last evening w/ ascites after presenting with 2 wks of increasing abd girth, exertional dypsnea, jaundice, gross hematuria. he had a new dx of liver cirrhosis on presentation based on imaging and other parameters. GI is following and supervising hepatic w/u. Little other medical hx except past EtOH use; denies current /recent EtOH use. Presenting creatinine 2.1; unchanged this am. No prior baseline creatinines in [employer] system or in [employer]. Pt denies use of herbal supplements, nsaids (maybe 1-2 pills every few mos), or acetaminophen. He underwent MRCP this am; he had paracenteses w/ per his report about 7 L fluid removed earlier today and feels markedly less distended. 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 Allergies Allergy/AdvReac Type Severity Reaction Status Date / Time No Known Allergies Allergy Verified 06/12/20 20:01 Home Medications Medication Instructions Recorded Confirmed Type omega-3 fatty acids [Fish Oil] 0 mg PO QAM 06/12/20 06/12/20 History vitamin A 0 unit PO DAILY 06/12/20 06/12/20 History Patient History Social History Smoking Status: Former smoker Tobacco Type: Smokeless Tobacco (Dip or Chew) Hx Substance Use: No Preferred Language: Nepali Communication Ability: Effective Manager Ui Required: No Beliefs That Will Affect Care: None Current Living Situation: Alone Feels Safe at Home: Yes Assistive Devices: None Review of Systems 2 Review of Systems: All systems reviewed & are unremarkable except as noted in HPI & below Respiratory: + dyspnea ( improving post paracentesis) Genitourinary: + problem reported (orange brown urine) Physical Exam Constitutional: well developed, + cachectic and cooperative Eyes: EOM intact bilaterally; sclerae not anicteric ENMT: Ears: no external ear abnormality Nose: no external nose abnormality Mouth: + dry oral mucous membranes Neck: no nuchal rigidity Respiratory: normal respiratory effort Auscultation: lungs clear to auscultation bilaterally and + diminished lung sounds Cardiovascular: RRR, no murmur, no edema Gastrointestinal (Abdomen): Inspection/Auscultation: normal bowel sounds Percussion/Palpation: abdomen soft; abdomen nontender Musculoskeletal: Extremities: strength 5/5 throughout Skin: no rashes, warm and dry + jaundice; no rashes Neurologic: ken, fluent speech, no tremor/asterixis Psychiatric: A+Ox3, euthymic affect Results & Data ([facility]) Vital Signs (Past 12 Hours) Vital Signs Temp Pulse Pulse Resp BP BP Pulse Ox 06/13/20 13:19 36.7 C 87 20 118/75 95 06/13/20 12:30 83 21 107/73 95 06/13/20 12:00 86 21 104/70 96 06/13/20 11:48 90 20 104/69 96 06/13/20 11:46 90 23 97 06/13/20 11:45 89 29 H 112/71 92 06/13/20 11:31 92 H 26 H 96 06/13/20 11:30 85 17 109/71 97 06/13/20 11:23 91 H 19 126/77 97 11/24/20 08:24 36.7 C 90 18 106/70 95 06/13/20 07:30 92 H 15 06/13/20 04:21 36.5 C 89 18 104/70 95 Laboratory Results 06/13/20 05:29 06/13/20 05:29 UA yesterday PM > 1024; turbid orange; trace protein, positive nitrites, 3+ bilirubin; 1+ LE; 10-30 WBC and RBC, no bacteria; 10-20 epis ascitic fluid > 16% pmn, 5% lymphs; <3K RBC; 128 WBC; alb <0.6 Tox screen neg Diagnostic Findings abd/pelvis CT non con Lung bases: The heart is normal in size and without pericardial effusion. The coronary arteries are densely calcified. There is trace right pleural effusion with right basilar atelectasis. Esophageal varices are noted. There is a small hiatal hernia which also contains ascitic fluid. Liver: The unenhanced liver is cirrhotic in morphology and heterogeneous in attenuation. Attenuation is diffusely diminished indicating steatosis. There is nodularity of the hepatic surface contour. There is no intrahepatic biliary ductal dilatation. There is recanalization of the periumbilical vein. Gallbladder: Hyperdense material filled the gallbladder, likely resenting stones and sludge. There is no CT evidence of acute cholecystitis. Spleen: Normal in size and attenuation. Pancreas: The unenhanced pancreas is moderately atrophic and grossly unremarkable. Adrenal glands: Unremarkable. Kidneys: The unenhanced kidneys are normal in size and without hydronephrosis. There are no renal calculi identified. A 1.5 cm exophytic cyst is noted on the left. Abdominal vasculature: The abdominal aorta is normal in course and caliber noting moderate to advanced atherosclerotic calcification. Bowel: There is no bowel obstruction. The appendix is not visualized. Peritoneum: There is a moderate volume of abdominopelvic ascites. No intraperitoneal free air is seen. Lymphadenopathy: None. Pelvic viscera: The bladder, prostate, and seminal vesicles are normal as visualized. Skeletal structures: The skeletal structures are osteopenic. There is mild lumbosacral spondylosis. A hemitransitional left lumbosacral segment is incidentally noted. No lytic or blastic lesions are seen. IMPRESSION: 1. The liver is cirrhotic in morphology with evidence of severe steatosis. 2. Esophageal varices, recanalization of the periumbilical vein, and a moderate volume of abdominopelvic ascites indicate portal hypertension. 3. Trace right pleural effusion. 4. Hyperdense material filling the gallbladder likely represents stones and sludge. There is no CT evidence of acute cholecystitis. 5. Additional findings as above. CXR > no active disease (1) Cirrhosis Ascites presence: with ascites Hepatic cirrhosis type: unspecified hepatic cirrhosis Qualified Code(s): K74.60 - Unspecified cirrhosis of liver; R18.8 - Other ascites
--- NOTE | 2020-06-13 15:52 | Hospitalist Progress Note ---
Date of Service June 13, 2020 Assessment & Plan (1) Cirrhosis: Per admitting service notes David Kowalski is a 70 yo male with no significant PMHx who presented to [facility] ED on 06/12/2020 with ~2 weeks of worsening generalized abdominal distension, shortness of breath, fatigue and jaundice - new diagnosis of cirrhosis on abdominal imaging and WBC 24.4 - suspicious for SBP. Ascites -Status post diagnostic and therapeutic thoracentesis, draining 6 L -Albumin being given -Follow-up ascites fluid pathology and cultures -On empiric Zosyn for possible SBP Newly diagnosed liver cirrhosis -GI consulted, serologic work-up ordered including hepatitis panel, AIH, etc. -MRCP ordered to rule out biliary obstruction UTI - new-onset hematuria x2 weeks along with other symptoms, per patient - UA positive for nitrite, 1+ LE, 10-30 WBC - Urine cx pending -Hematuria resolved -Continue Zosyn JOHANN - Cr 2.1, ratio >20 - no previous values to determine baseline although patient denies significant PMHx -Advertising Space Clerk consulted Subclinical Hypothyroidism - TSH 7.96, Free T4 1.36 - insufficient data to treat - recommend f/u as outpatient DVT Prophylaxis: no pharmacologic ppx for now, as anticoagulated 2/2 cirrhosis Code Status: Full code Disposition: Pending Lives with family at home Admission and Anticipated Discharge Date Admission Date: June 12, 2020 Subjective Follow-up for shortness of breath secondary to massive ascites, new diagnosed liver cirrhosis Seen status post paracentesis-6 L drained Resting in bed, watching TV, in good spirits States he feels improved after paracentesis, no active shortness of breath Denies abdominal pain, fevers or chills, nausea vomiting No headache, dizziness, chest pain No bleeding No other symptoms Review of Systems Review of Systems: All systems reviewed & are unremarkable except as noted in Subjective Physical Exam Physical Exam: General- oriented x 3, not in distress, speaks in sentences with no effort or accessory muscle use Head- atraumatic Eyes- PERRL, EOMI, positive icterus ENT- oropharynx clear Neck- supple, no JVD, no adenopathy, no thyromegaly; carotids +2/2, no bruits appreciated Lungs- clear to auscultation bilaterally, no rales/wheezes Heart- normal rate, regular rhythm; no murmur, no gallop, no rub appreciated Abdomen- normal bowel sounds, mildly distended, soft, nontender, no masses or hepatosplenomegaly Extremities- no pretibial edema, no calf tenderness; peripheral pulses intact Neuro- alert, oriented x 3; CN 2-12 grossly intact; motor 5/5 bilaterally;sensation 100% on all extremities; no other gross focal neurologic deficits Skin- warm & dry Results & Data Results & Data ([facility]) Vital Signs (Past 12 Hours) Vital Signs Temp Pulse Pulse Resp BP BP Pulse Ox 06/13/20 13:19 36.7 C 87 20 118/75 95 06/13/20 12:30 83 21 107/73 95 06/13/20 12:00 86 21 104/70 96 06/13/20 11:48 90 20 104/69 96 06/13/20 11:46 90 23 97 06/13/20 11:45 89 29 H 112/71 92 06/13/20 11:31 92 H 26 H 96 06/13/20 11:30 85 17 109/71 97 06/13/20 11:23 91 H 19 126/77 97 06/13/20 08:24 36.7 C 90 18 106/70 95 06/13/20 07:30 92 H 15 06/13/20 04:21 36.5 C 89 18 104/70 95 Laboratory Results Laboratory Results - last 24 hr 06/12/20 06/12/20 06/12/20 15:14 21:00 21:00 WBC RBC Hgb Hct MCV MCH MCHC RDW Std Deviation RDW Coeff of Pily Plt Count MPV Immature Gran % (Auto) Neut % (Auto) Lymph % (Auto) [place] % (Auto) Eos % (Auto) Baso % (Auto) Neut # (Auto) Lymph # (Auto) [place] # (Auto) Eos # (Auto) Baso # (Auto) Immature Gran # (Auto) PT INR Sodium Potassium Chloride Carbon Dioxide Anion Gap BUN Creatinine Est Cr Clr Drug Dosing Est GFR ( Amer) Est GFR (Non-Af Amer) BUN/Creatinine Ratio Glucose Estimat Average Glucose 68 Hemoglobin A1c 4.0 L Calcium Magnesium Total Bilirubin AST ALT Alkaline Phosphatase Total Protein Albumin Globulin Albumin/Globulin Ratio Vitamin B12 Folate Urine Color [place] Urine Appearance Turbid A Urine pH 5.0 Ur Specific [place] 1.024 Urine Protein Trace H Urine Glucose (UA) Negative Urine Ketones Negative Urine Blood Negative Urine Nitrite Positive A Urine Bilirubin 3+ H Urine Urobilinogen Negative Ur Leukocyte Esterase 1+ H Urine WBC (Auto) 10-30 H Urine RBC (Auto) 10-30 H U Hyaline Cast (Auto) 1-5 U Epithel Cells (Auto) 10-20 H Urine Bacteria (Auto) Negative Fluid Neutrophils % Fluid Lymphocytes % Fluid Eosinophils % Fluid Basophils % Fluid [place] % Peritoneal Color Peritoneal Appearance Peritoneal WBC Peritoneal RBC Peritoneal Tot Protein Peritoneal Albumin Urine Opiates Screen Neg Ur Methadone, Qual Neg Urine Barbiturates Neg Ur Phencyclidine (PCP) Neg U Amphetamin/Meth Scrn Neg MDMA (Ecstasy) Screen Neg U Benzodiazepines Scrn Neg Ur Cocaine Metabolite Neg U Marijuana (THC) Screen Neg Anti-Smooth Muscle Ab 06/12/20 06/13/20 06/13/20 Unknown 05:29 05:29 WBC 18.33 H RBC 3.67 L Hgb 12.4 L Hct 35.4 L MCV 96.5 MCH 33.8 MCHC 35.0 RDW Std Deviation 64.4 H RDW Coeff of Pily 18.3 H Plt Count 169 MPV 10.6 H Immature Gran % (Auto) 0.4 Neut % (Auto) 81.9 Lymph % (Auto) 7.9 [place] % (Auto) 7.5 Eos % (Auto) 1.9 Baso % (Auto) 0.4 Neut # (Auto) 15.03 H Lymph # (Auto) 1.44 [place] # (Auto) 1.37 H Eos # (Auto) 0.35 Baso # (Auto) 0.07 Immature Gran # (Auto) 0.07 H PT INR Sodium 133 L Potassium 3.1 L Chloride 97 L Carbon Dioxide 30 Anion Gap 6.0 BUN 46 H Creatinine 2.09 H Est Cr Clr Drug Dosing 33.4 Est GFR ( Amer) 36.3 Est GFR (Non-Af Amer) 31.4 BUN/Creatinine Ratio 21.8 H Glucose 101 H Estimat Average Glucose Hemoglobin A1c Calcium 7.5 L Magnesium 2.5 H Total Bilirubin 12.9 H AST 118 H ALT 47 Alkaline Phosphatase 202 H Total Protein 6.1 L Albumin 1.5 L Globulin 4.6 H Albumin/Globulin Ratio 0.3 L Vitamin B12 Folate Urine Color Urine Appearance Urine pH Ur Specific [place] Urine Protein Urine Glucose (UA) Urine Ketones Urine Blood Urine Nitrite Urine Bilirubin Urine Urobilinogen Ur Leukocyte Esterase Urine WBC (Auto) Urine RBC (Auto) U Hyaline Cast (Auto) U Epithel Cells (Auto) Urine Bacteria (Auto) Fluid Neutrophils % 16 Fluid Lymphocytes % 5 Fluid Eosinophils % 0 Fluid Basophils % 0 Fluid [place] % 79 Peritoneal Color YELLOW Peritoneal Appearance CLEAR Peritoneal WBC 128 Peritoneal RBC < 3000 Peritoneal Tot Protein 0.9 Peritoneal Albumin < 0.6 Urine Opiates Screen Ur Methadone, Qual Urine Barbiturates Ur Phencyclidine (PCP) U Amphetamin/Meth Scrn MDMA (Ecstasy) Screen U Benzodiazepines Scrn Ur Cocaine Metabolite U Marijuana (THC) Screen Anti-Smooth Muscle Ab 06/13/20 06/13/20 06/13/20 05:29 11:33 11:33 WBC RBC Hgb Hct MCV MCH MCHC RDW Std Deviation RDW Coeff of Pily Plt Count MPV Immature Gran % (Auto) Neut % (Auto) Lymph % (Auto) [place] % (Auto) Eos % (Auto) Baso % (Auto) Neut # (Auto) Lymph # (Auto) [place] # (Auto) Eos # (Auto) Baso # (Auto) Immature Gran # (Auto) PT 15.3 H INR 1.5 H Sodium Potassium Chloride Carbon Dioxide Anion Gap BUN Creatinine Est Cr Clr Drug Dosing Est GFR ( Amer) Est GFR (Non-Af Amer) BUN/Creatinine Ratio Glucose Estimat Average Glucose Hemoglobin A1c Calcium Magnesium Total Bilirubin AST ALT Alkaline Phosphatase Total Protein Albumin Globulin Albumin/Globulin Ratio Vitamin B12 > 2000 H Folate 5.50 Urine Color Urine Appearance Urine pH Ur Specific [place] Urine Protein Urine Glucose (UA) Urine Ketones Urine Blood Urine Nitrite Urine Bilirubin Urine Urobilinogen Ur Leukocyte Esterase Urine WBC (Auto) Urine RBC (Auto) U Hyaline Cast (Auto) U Epithel Cells (Auto) Urine Bacteria (Auto) Fluid Neutrophils % Fluid Lymphocytes % Fluid Eosinophils % Fluid Basophils % Fluid [place] % Peritoneal Color Peritoneal Appearance Peritoneal WBC Peritoneal RBC Peritoneal Tot Protein Peritoneal Albumin Urine Opiates Screen Ur Methadone, Qual Urine Barbiturates Ur Phencyclidine (PCP) U Amphetamin/Meth Scrn MDMA (Ecstasy) Screen U Benzodiazepines Scrn Ur Cocaine Metabolite U Marijuana (THC) Screen Anti-Smooth Muscle Ab Pending (1) Cirrhosis Hepatic cirrhosis type: unspecified hepatic cirrhosis Ascites presence: with ascites Qualified Code(s): K74.60 - Unspecified cirrhosis of liver; R18.8 - Other ascites
[2020-06-14] MEDS: ALBUMIN 25% 12.5 GM/50 ML VIAL IV SCH ×8 (05:09→22:23)
[2020-06-14] MEDS: PIPERACILLIN/TAZOBACTAM 3.375 GM in DEXTROSE 5% 100 ML IV SCH ×3 (07:26→22:59)
[2020-06-14 07:52] LABS: Protein Creatinine Ratio Urine 0.2 (0-0.2); Total Protein Urine Random 38.6 mg/dl (0-11.9)
[2020-06-14 08:41] LABS: Hematocrit (blood only) 34.2 % (42-52); Hemoglobin 11.9 g/dL (14.0-18.0); Mean Corpuscular Hemoglobin 33.8 pg (25-34); Mean Corpuscular Volume 97.2 fL (80-100); Mean Platelet Volume 10.8 fL (7.4-10.4); Platelet Count 130 K/uL (130-400); RDW Coefficient of Variation 18.2 % (11.5-14.5); RDW Standard Deviation 64.1 fL (36.4-46.3); Red Blood Count 3.52 M/uL (4.7-6.1); White Blood Count 14.86 K/uL (4.8-10.8)
[2020-06-14 08:45] LABS: Mean Corpuscular Hgb Conc 34.8 g/dL (32-36)
[2020-06-14 08:51] LABS: INR 1.6 (0.9-1.1); Prothrombin Time 16.7 Seconds (9.0-12.0)
[2020-06-14 09:01] LABS: Albumin Globulin Ratio 0.8 (0.9-2); Albumin Level 2.7 gm/dl (3.4-5.0); BUN Creatinine Ratio 21.3 (10-20); Bilirubin,Total 11.9 mg/dl (0.2-1); Creatinine Clr Calc Pharmacy 36.7 ml/min; Est GFR (African American) 40.8; Est GFR (Non-African American) 35.2; Globulin 3.6 gm/dl (2.5-4.0); Potassium 3.1 mmol/L (3.5-5.1); Total Protein 6.3 gm/dl (6.4-8.2)
--- NOTE | 2020-06-14 10:09 | Nephrology Progress Note ---
Date of Service June 14, 2020 Assessment & Plan (1) Renal insufficiency: presenting creatinine and f/u test 2.1; bsaeline unknown. ATN versus hepatorenal syndrome or prerenal; may have some changes in renal function after large volume paracentesis. reported gross hematuria at admission > has orange urine specimen reported w/ bilirubinuria > not particularly c/w gross but c/w microhematuria and could be c/w HRS. Creatinine 1.9 today. -avoid nephrotoxins -daily bmp -will continue albumin IV > 75 gm/ day for up to 2 days -- already had some albumin for paracentesis -f/u pending cxs (NTGD); urine specimen from admission not very c/w UTI > no bacteria for ex; but agree w/ empiric coverage given leukocytosis (2) Electrolyte and fluid disorder: w/ ascites and hypokalemia; very mild hypervolemic hyponatremia -IV albumin as above -will give 60 po K x 1 (3) Cirrhosis: per GI service and primary team; new dx Admission and Anticipated Discharge Date Admission Date: June 12, 2020 Subjective Seen in follow-up for acute kidney injury. He feels well denies any shortness of breath or vomiting. He has mild abdominal distention. Review of Systems Review of Systems: All systems reviewed & are unremarkable except as noted in HPI & below Physical Exam Physical Exam: General exam: Appears comfortable, no acute distress HEENT: Pupils are equal and reactive to light Neck: No JVD, neck is supple trachea is midline Respiratory system: Clear breath sounds bilaterally. Gastrointestinal: Abdomen is soft, distended, non tender, bowel sounds are present CVS: Regular rate and rhythm. No murmurs, rubs or gallops Musculoskeletal: No joint or muscle tenderness Extremities: Non tender, no edema, peripheral pulses are present Neuro: Oriented, no tremors, no focal neurological deficits Skin: No rashes, deep jaundice Results & Data ([facility]) Vital Signs (Past 12 Hours) Vital Signs Temp Pulse Pulse Resp BP Pulse Ox 06/14/20 09:36 84 06/14/20 09:24 36.9 C 97 H 20 100/56 L 94 06/14/20 03:42 36.8 C 93 H 17 93/60 L 93 06/14/20 02:00 91 H 06/14/20 00:06 37.2 C 89 18 91/48 L 92 Laboratory Results 06/14/20 08:19 06/14/20 06/14/20 08:19 08:19 WBC 14.86 H RBC 3.52 L MCV 97.2 MCH 33.8 MCHC 34.8 RDW Std Deviation 64.1 H RDW Coeff of Pily 18.2 H Plt Count 130 MPV 10.8 H Albumin 2.7 L (1) Cirrhosis Hepatic cirrhosis type: unspecified hepatic cirrhosis Ascites presence: with ascites Qualified Code(s): K74.60 - Unspecified cirrhosis of liver; R18.8 - Other ascites
--- NOTE | 2020-06-14 10:18 | Gastroenterology Progress Note ---
Date of Service June 14, 2020 Assessment & Plan (1) Cirrhosis: Pt is a 70 y/o male who presented w jaundice, increasing abd distension and hematuria. Upon eval noted to have new findings of cirrhosis, w signs of portal HTN, ascites, and leukocytosis. Urine & blood cx pending. Etiology of cirrhosis unclear ? related to previous ETOH uses though pt denies abuses. Toxicology screen negative, ETOH level low - Trend LFTs, improving - Cirrhosis workup to r/o acute hepatitis a/b/c, AIH, iron overload, alpha 1 antitrypsin, Leonardo's - Obtain MRCP to r/o biliary obstruction given gallbladder sludge/stone and new jaundice -> gallbladder sludge but no filling defect noted - F/U urine and blood cx, will keep on Zosyn IV for now - U/S paracentesis for therapuetic purpose w Albumin IV replacement done 06/13. Previous diagnostic paracentesis w/o signs of SBP - 2g Na diet, anticipate starting diuretics once kidney function improves - Avoid ETOH, APAP <2g a day - Will assist w setting GI f/u for cirrhosis care upon his DC (2) Ascites: Admission and Anticipated Discharge Date Admission Date: June 12, 2020 Supervising Physician Co-Signing Physician Notes I have seen and examined the patient with NAIMA Kingston whose note reflects our findings and plan. New dx of cirrhosis work up pending. Better after paracentesis. Abd exam is benign. Will arrange outpatient follow up. Subjective Pt reports being able to breath better after paracentesis. Denies abd pain, n/v. BM this AM w/o dark tarry stool or rectal bleeding Review of Systems Review of Systems: All systems reviewed & are unremarkable except as noted in HPI & below Physical Exam Constitutional: WD/WN, vitals as above well groomed, cooperative and comfortable Eyes: PERRL, conjunctivae normal, anicteric sclerae + scleral abnormality (icteric sclera) ENMT: external ear and nose normal, oropharynx normal Respiratory: normal respiratory effort, lungs clear to auscultation Cardiovascular: RRR, no murmur, no edema Gastrointestinal (Abdomen): Inspection/Auscultation: + abdomen distended (improved after paracentesis) and + hypoactive bowel sounds Percussion/Palpation: abdomen nontender Skin: no rashes, warm and dry + jaundice Neurologic: Motor/Sensory: no asterixis Psychiatric: A+Ox3, euthymic affect Lymphatic: no lymphedema Results & Data ([facility]) Vital Signs (Past 12 Hours) Vital Signs Temp Pulse Pulse Resp BP Pulse Ox 06/14/20 09:36 84 06/14/20 09:24 36.9 C 97 H 20 100/56 L 94 06/14/20 03:42 36.8 C 93 H 17 93/60 L 93 06/14/20 02:00 91 H 06/14/20 00:06 37.2 C 89 18 91/48 L 92 (1) Cirrhosis Ascites presence: with ascites Hepatic cirrhosis type: unspecified hepatic cirrhosis Qualified Code(s): K74.60 - Unspecified cirrhosis of liver; R18.8 - Other ascites
[2020-06-14] MEDS ORDERED: POTASSIUM CHLORIDE PWD 20 MEQ PACK PO ONE (10:30)
--- NOTE | 2020-06-14 11:38 | Hospitalist Progress Note ---
Date of Service June 14, 2020 Assessment & Plan (1) Cirrhosis: Per admitting service notes Patient presented to [facility] on 06/12/2020 with ~2 weeks of worsening generalized abdominal distension, shortness of breath, fatigue and jaundice - new diagnosis of cirrhosis on abdominal imaging and WBC 24.4 (1) Newly diagnosed decompensated liver cirrhosis (2) Ascites Status post diagnostic and therapeutic thoracentesis, draining 6 L Getting albumin Fluid analysis and culture so far does not show infection Leukocytosis improving Discontinue antibiotics GI consulted, serologic work-up ordered including hepatitis panel, AIH, etc. MRCP ordered to rule out biliary obstruction Discussed with GI Dr Barahona. Patient will follow up with GI outpatient for continued management (3) UTI Reported new-onset hematuria x2 weeks along with other symptoms UA positive for nitrite, 1+ LE, 10-30 WBC Urine culture negative. Hematuria resolved (4) JOHANN On admission Cr 2.1, ratio >20. No previous labs to compare Cr trending down now 1.90 Girls Swimming Coach recommendations noted Continue albumin for now Monitor renal function and avoid nephrotoxins (5) Subclinical Hypothyroidism TSH 7.96, Free T4 normal 1.36 Follow up outpatient DVT Prophylaxis: No pharmacologic ppx for now, as anticoagulated 2/2 cirrhosis Code Status: Full code Admission and Anticipated Discharge Date Admission Date: June 12, 2020 Subjective Patient seen and examined Reports feeling better since paracentesis of 6L yesterday Reports shortness of breath is resolved Denied any abd pain, fevers, chills, nausea, vomiting Denied any tremors Denied any confusion, dizziness, headaches Denied any constipation Denied dysuria, frequency urgency, suprapubic or flank pain. No hematuria Physical Exam Constitutional: + well hydrated; no acute distress Eyes: + corneal abnormality (Jaundice), PERRL, normal accommodation and EOM intact bilaterally ENMT: external ear and nose normal, oropharynx normal Respiratory: normal respiratory effort, lungs clear to auscultation Cardiovascular: Rate/Rhythm: regular rate and regular rhythm S1 S2. No pedal edema Gastrointestinal (Abdomen): Inspection/Auscultation: normal bowel sounds Percussion/Palpation: abdomen soft; abdomen nontender, no guarding and abdomen not rigid Abdomen is distended Musculoskeletal: No pedal edema Skin: + jaundice Neurologic: PERRL, EOMI, accommodation nl, no face palsy, no dysarthria Psychiatric: A+Ox3, euthymic affect Genitourinary: no CVA tenderness Results & Data Results & Data ([facility]) Vital Signs (Past 12 Hours) Vital Signs Temp Pulse Pulse Resp BP Pulse Ox 06/14/20 09:36 84 06/14/20 09:24 36.9 C 97 H 20 100/56 L 94 06/14/20 03:42 36.8 C 93 H 17 93/60 L 93 06/14/20 02:00 91 H 06/14/20 00:06 37.2 C 89 18 91/48 L 92 Laboratory Results Laboratory Results - last 24 hr 06/12/20 06/12/20 06/13/20 15:14 18:08 11:33 WBC RBC Hgb Hct MCV MCH MCHC RDW Std Deviation RDW Coeff of Pily Plt Count MPV PT INR Sodium Potassium Chloride Carbon Dioxide Anion Gap BUN Creatinine Est Cr Clr Drug Dosing Est GFR ( Amer) Est GFR (Non-Af Amer) BUN/Creatinine Ratio Glucose Calcium Total Bilirubin AST ALT Alkaline Phosphatase Total Protein Albumin Globulin Albumin/Globulin Ratio [id number] 230 H Vitamin B12 > 2000 H Folate 5.50 Ur Random Creatinine U Random Total Protein Protein/Creatinin Ratio Miscellaneous Test REPORT 06/14/20 06/14/20 06/14/20 06:55 08:19 08:19 WBC 14.86 H RBC 3.52 L Hgb 11.9 L Hct 34.2 L MCV 97.2 MCH 33.8 MCHC 34.8 RDW Std Deviation 64.1 H RDW Coeff of Pily 18.2 H Plt Count 130 MPV 10.8 H PT INR Sodium 135 L Potassium 3.1 L Chloride 99 Carbon Dioxide 27 Anion Gap 9.0 BUN 41 H Creatinine 1.90 H Est Cr Clr Drug Dosing 36.7 Est GFR ( Amer) 40.8 Est GFR (Non-Af Amer) 35.2 BUN/Creatinine Ratio 21.3 H Glucose 170 H Calcium 8.0 L Total Bilirubin 11.9 H AST 90 H ALT 35 Alkaline Phosphatase 183 H Total Protein 6.3 L Albumin 2.7 L Globulin 3.6 Albumin/Globulin Ratio 0.8 L Inqek-3-Zcynstfmrqu Vitamin B12 Folate Ur Random Creatinine 188.0 U Random Total Protein 38.6 H Protein/Creatinin Ratio 0.2 Miscellaneous Test 11/25/20 08:19 WBC RBC Hgb Hct MCV MCH MCHC RDW Std Deviation RDW Coeff of Pily Plt Count MPV PT 16.7 H INR 1.6 H Sodium Potassium Chloride Carbon Dioxide Anion Gap BUN Creatinine Est Cr Clr Drug Dosing Est GFR ( Amer) Est GFR (Non-Af Amer) BUN/Creatinine Ratio Glucose Calcium Total Bilirubin AST ALT Alkaline Phosphatase Total Protein Albumin Globulin Albumin/Globulin Ratio [id number]-[id number] Vitamin B12 Folate Ur Random Creatinine U Random Total Protein Protein/Creatinin Ratio Miscellaneous Test (1) Cirrhosis Ascites presence: with ascites Hepatic cirrhosis type: unspecified hepatic cirrhosis Qualified Code(s): K74.60 - Unspecified cirrhosis of liver; R18.8 - Other ascites
[2020-06-14 14:11] LABS: AFP Tumor Marker Serum 2.1 ng/mL (<6.1); Anti Nuclear Antibody Screen POSITIVE (NEGATIVE); Ceruloplasmin 32 mg/dL (18-36); Hepatitis A Antibody IgM NON-REACTIVE (NON-REACTIVE); Hepatitis B Core Antibody IgM NON-REACTIVE (NON-REACTIVE)
[2020-06-15 07:26] LABS: Hematocrit (blood only) 32.4 % (42-52); Hemoglobin 11.4 g/dL (14.0-18.0); Mean Corpuscular Hemoglobin 34.2 pg (25-34); Mean Corpuscular Hgb Conc 35.2 g/dL (32-36); Mean Corpuscular Volume 97.3 fL (80-100); Platelet Count 123 K/uL (130-400); RDW Coefficient of Variation 18.1 % (11.5-14.5); RDW Standard Deviation 64.4 fL (36.4-46.3); Red Blood Count 3.33 M/uL (4.7-6.1); White Blood Count 15.75 K/uL (4.8-10.8)
[2020-06-15 07:41] LABS: INR 1.6 (0.9-1.1); Prothrombin Time 16.4 Seconds (9.0-12.0)
[2020-06-15 08:09] LABS: Albumin Globulin Ratio 0.7 (0.9-2); Albumin Level 2.6 gm/dl (3.4-5.0); BUN Creatinine Ratio 22.6 (10-20); Bilirubin,Total 10.6 mg/dl (0.2-1); Calcium 7.7 mg/dl (8.5-10.1); Creatinine Clr Calc Pharmacy 47.4 ml/min; Est GFR (African American) 55.6; Globulin 3.5 gm/dl (2.5-4.0); Magnesium 2.3 mg/dl (1.8-2.4); Potassium 3.2 mmol/L (3.5-5.1); Total Protein 6.1 gm/dl (6.4-8.2)
[2020-06-15] MEDS ORDERED: POTASSIUM CHLORIDE PWD 20 MEQ PACK PO ONE (08:16)
[2020-06-15] MEDS ORDERED: POTASSIUM CHLORIDE CRTAB 20 MEQ TABCR PO SCH (09:00)
--- NOTE | 2020-06-15 10:04 | Nephrology Progress Note ---
Date of Service June 15, 2020 Assessment & Plan (1) Renal insufficiency: presenting creatinine and f/u test 2.1; bsaeline unknown. ATN versus hepatorenal syndrome or prerenal; may have some changes in renal function after large volume paracentesis. reported gross hematuria at admission > has orange urine specimen reported w/ bilirubinuria > not particularly c/w gross but c/w microhematuria and could be c/w HRS. Creatinine 1.47 today. -From renal standpoint, patient can be discharged on Lasix 40 mg daily, Aldactone 50 mg daily, potassium chloride 20 mEq twice daily. Patient will need a BMP on Friday and renal follow-up in 1 to 2 weeks. (2) Electrolyte and fluid disorder: w/ ascites and hypokalemia; very mild hypervolemic hyponatremia -IV albumin as above -will give a total of 60 po K. Continue KCl 20 mEq twice daily outpatient (3) Cirrhosis: per GI service and primary team; new dx Admission and Anticipated Discharge Date Admission Date: June 12, 2020 Subjective He feels better today. No shortness of breath. Still has abdominal distention Seen in follow-up for acute kidney injury. Review of Systems Review of Systems: All systems reviewed & are unremarkable except as noted in HPI & below Physical Exam Physical Exam: General exam: Appears comfortable, no acute distress HEENT: Pupils are equal and reactive to light Neck: No JVD, neck is supple trachea is midline Respiratory system: Clear breath sounds bilaterally. Gastrointestinal: Abdomen is soft, distended, non tender, bowel sounds are present CVS: Regular rate and rhythm. No murmurs, rubs or gallops Musculoskeletal: No joint or muscle tenderness Extremities: Non tender, no edema, peripheral pulses are present Neuro: Oriented, no tremors, no focal neurological deficits Skin: No rashes, deep jaundice Results & Data ([facility]) Vital Signs (Past 12 Hours) Vital Signs Temp Pulse Pulse Resp BP Pulse Ox 06/15/20 07:29 84 06/15/20 07:10 36.5 C 89 18 106/70 92 06/15/20 04:03 37.3 C 92 H 18 101/60 93 06/15/20 00:20 37 C 93 H 18 109/68 95 Laboratory Results 06/15/20 06:57 06/15/20 06/15/20 06:57 06:57 WBC 15.75 H RBC 3.33 L MCV 97.3 MCH 34.2 H MCHC 35.2 RDW Std Deviation 64.4 H RDW Coeff of Pily 18.1 H Plt Count 123 L MPV 11.0 H Albumin 2.6 L (1) Cirrhosis Hepatic cirrhosis type: unspecified hepatic cirrhosis Ascites presence: with ascites Qualified Code(s): K74.60 - Unspecified cirrhosis of liver; R18.8 - Other ascites
--- NOTE | 2020-06-15 11:15 | Discharge Summary ---
Date of Service June 15, 2020 Admission HPI Per Admitting Provider David Kowalski is a 70 yo male with no significant PMHx who presented to [facility] ED on 06/12/2020 with ~2 weeks of worsening generalized abdominal distension, shortness of breath, fatigue and jaundice. Also reports hematuria x2 weeks without dysuria, increased urinary frequency/urgency, fever/chills, flank pain. The patient denies ever experiencing these symptoms before. Lives in the [facility] and has had Lyme disease in the past (most recently 1 year ago - treated with abx) but denies recent tick bites and reports that he checks for ticks every time after going outside - denies myalgias/joint aches. Denies chest pain, dizziness. Denies N/V/hematemesis or abdominal pain. Denies melena, hematochezia, easy bleeding/bruising. PMHx: denies HTN, DM, HLD, heart/liver/lung/kidney disease Medications: multivitamins as prescribed and fish oil, denies other supplements SurgeryHx: neck surgery 2/2 mechanical fall >30 years ago FamilyHx: father was an alcoholic and smoked tobacco, denies h/o liver/lung/heart disease or cancers SocialHx: lives with girlfriend, proficient in ADLs/iADLs. Denies alcohol use since 02/20/2020 and reports only minimal drinking socially before that. Denies current or past smoking and denies other drug use. Admission Exam Per Admitting Provider Constitutional: Well developed and + thin; no acute distress Eyes: Scleral icterus Neck: Trachea midline, no thyromegaly Respiratory: Normal respiratory effort, lungs clear to auscultation Cardiovascular: Rate/Rhythm: regular rhythm and + tachycardic Heart Sounds: normal S2; no murmur Gastrointestinal (Abdomen): Inspection/Auscultation: + abdomen distended, + caput medusae present and + hypoactive bowel sounds Percussion/Palpation: + ascites, + fluid wave and + abdomen firm; abdomen nontender, no guarding and abdomen not rigid Skin: +jaundice Psychiatric: A+Ox3, euthymic affect Genitourinary: No CVA tenderness Principal Diagnosis New diagnosis decompensated liver cirrhosis Ascites Jaundice Acute renal failure Discharge Exam Constitutional + well hydrated; no acute distress Eyes + corneal abnormality (Jaundice), PERRL, normal accommodation and EOM intact bilaterally ENMT external ear and nose normal, oropharynx normal Respiratory normal respiratory effort, lungs clear to auscultation Cardiovascular Rate/Rhythm: regular rate and regular rhythm Gastrointestinal (Abdomen) Inspection/Auscultation: normal bowel sounds Percussion/Palpation: abdomen soft; abdomen nontender, no guarding and abdomen not rigid Skin + jaundice Neurologic PERRL, EOMI, accommodation nl, no face palsy, no dysarthria Psychiatric A+Ox3, euthymic affect Genitourinary no CVA tenderness Discharge Data Allergies Allergy/AdvReac Type Severity Reaction Status Date / Time No Known Allergies Allergy Verified 06/12/20 20:01 Consultations 06/12/20 17:21 ED Decision to Admit Stat 06/12/20 19:54 Consult Gastroenterology Routine 06/13/20 08:53 Consult Nephrology Routine Ordered Studies 06/12/20 16:04 CT abd pelvis wo con Stat FINDINGS: Lung bases: The heart is normal in size and without pericardial effusion. The coronary arteries are densely calcified. There is trace right pleural effusion with right basilar atelectasis. Esophageal varices are noted. There is a small hiatal hernia which also contains ascitic fluid. Liver: The unenhanced liver is cirrhotic in morphology and heterogeneous in attenuation. Attenuation is diffusely diminished indicating steatosis. There is nodularity of the hepatic surface contour. There is no intrahepatic biliary ductal dilatation. There is recanalization of the periumbilical vein. Gallbladder: Hyperdense material filled the gallbladder, likely resenting stones and sludge. There is no CT evidence of acute cholecystitis. Spleen: Normal in size and attenuation. Pancreas: The unenhanced pancreas is moderately atrophic and grossly unremarkable. Adrenal glands: Unremarkable. Kidneys: The unenhanced kidneys are normal in size and without hydronephrosis. There are no renal calculi identified. A 1.5 cm exophytic cyst is noted on the left. Abdominal vasculature: The abdominal aorta is normal in course and caliber noting moderate to advanced atherosclerotic calcification. Bowel: There is no bowel obstruction. The appendix is not visualized. Peritoneum: There is a moderate volume of abdominopelvic ascites. No intraperitoneal free air is seen. Lymphadenopathy: None. Pelvic viscera: The bladder, prostate, and seminal vesicles are normal as visualized. Skeletal structures: The skeletal structures are osteopenic. There is mild lumbosacral spondylosis. A hemitransitional left lumbosacral segment is incidentally noted. No lytic or blastic lesions are seen. IMPRESSION: 1. The liver is cirrhotic in morphology with evidence of severe steatosis. 2. Esophageal varices, recanalization of the periumbilical vein, and a moderate volume of abdominopelvic ascites indicate portal hypertension. 3. Trace right pleural effusion. 4. Hyperdense material filling the gallbladder likely represents stones and sludge. There is no CT evidence of acute cholecystitis. 5. Additional findings as above. 06/13/20 09:32 MR MRCP Routine 1. Mild motion artifact. This results in suboptimal evaluation. Trace right pleural effusion and a small fluid-filled hiatal hernia are again noted. Nodular contour to the liver consistent with cirrhosis. No definite hepatic or splenic masses. The spleen is mildly enlarged measuring 13 cm in length. Small to moderate amount of ascites is present. There are few subcentimeter T2 hyperintense lesions within the liver. These favor small cysts. There is a 1.2 cm T2 hyperintense lesion within the left kidney. This also favors a cyst. No hydronephrosis. The gallbladder is mildly distended and appears to be filled with sludge. No definite gallstones. There is mild periportal edema. There is mild mesenteric and peripancreatic edema. This is likely due to the patient's cirrhosis. An acute pancreatitis is considered less likely but not entirely excluded. No retroperitoneal lymphadenopathy. Normal caliber abdominal aorta. Common bile duct is normal in course and caliber. No filling defects within the common bile duct. The main pancreatic duct is not well visualized but likely normal in caliber. No intrahepatic bile duct dilatation. IMPRESSION: 1. Normal caliber common bile duct. No filling defects to suggest choledocholithiasis. 2. The gallbladder is mildly distended and filled with sludge. No gallbladder wall thickening. 3. Cirrhotic liver with portal hypertension and a small to moderate amount of a scites. 4. Peripancreatic edema is likely due to the cirrhosis. Acute pancreatitis is considered less likely. Recommend correlation with pancreatic enzymes for further evaluation. 06/13/20 10:03 US paracentesis abd w/image Routine The risks, benefits, and alternatives to the procedure were discussed with the patient who voiced understanding. Written informed consent was obtained. Following real-time ultrasound localization of a suitable pocket of fluid in the right lower quadrant, the abdomen was prepped and draped in the usual sterile fashion. The skin and soft tissues were anesthetized with 1% lidocaine. The sheathed paracentesis needle was inserted and approximately 6 liters of dark yellow ascitic fluid was removed by vacuum suction. The procedure was well elmer erated and without immediate complication. The patient left the department in satisfactory condition. IMPRESSION: Successful ultrasound-guided paracentesis with removal of approximately 6 liters of ascitic fluid. Hospital Course (1) Cirrhosis: Per admitting service notes Patient presented to [facility] ED on 06/12/2020 with ~2 weeks of worsening generalized abdominal distension, shortness of breath, fatigue and jaundice - new diagnosis of cirrhosis on abdominal imaging and WBC 24.4 (1) Newly diagnosed decompensated liver cirrhosis (2) Ascites Status post diagnostic and therapeutic thoracentesis, draining 6 L Got iv albumin Fluid analysis and culture did not show any infection Had leukocytosis on admission 24K improving now 15K Negative blood and urine cultures Empirical antibiotics were discontinued Was comanaged with [employer] Discharged on po lasix 40mg and spironolactone 50mg daily Patient needs to follow up with GI in 1-2week for continued evaluation and management (3) Possible UTI Reported new-onset hematuria x2 weeks UA positive for nitrite, 1+ LE, 10-30 WBC Was started on empirical antibiotics Urine culture negative. No urinary symptoms or hematuria while inpatient Antibiotics were discontinued (4) JOHANN On admission Cr 2.1, ratio >20. No previous labs to compare Cr trending down now 1.47 Was comanaged with [employer] Also hypokalemic which was being repleted Discharged on po potassium bid with diuretics To get BMP on Friday to monitor renal function and potassium levels Patient advised to follow up with PCP and [employer] outpatient (5) Subclinical Hypothyroidism TSH 7.96, Free T4 normal 1.36 Follow up outpatient Discussed plans with patient He denied alcohol use. However, when I spoke with Sister who patient asked me to update. She mentioned patient used to drink in the past, unclear if he has quit I informed the sister Kera Ly about clinical findings and plans. I also went over the new medications, education about management of cirrhosis, need for outpatient follow up with PCP, nephrology and GI with her Total Time Total Time Spent Total Time Spent (In Minutes): 60 Total Time Includes: Examination of the Patient, Discharge Planning, Medication Reconciliation and Communication With Other Providers Discharge Plan Discharge Items Patient Disposition: Home - Self-Care Reason For Visit: Abdominal distention Discharge Diagnosis: New diagnosis of Decompensated Liver Cirrhosis Ascites Jaundice Acute kidney failure Activity: Resume your previous activity Non-emergency contact: Primary Care Provider, [employer] and [employer] Call non-emergency contact if: you have any medication questions and your symptoms worsen Follow-up/Referrals: Ronna Barahona DO [Physician] - (Call for follow up in 1-2 weeks) Dulce Gonzalez MD [Physician] - (Call for follow up in 1-2 weeks) PCP,NO [Primary Care Provider] - Diet: Heart Healthy Fluids: 2000ml (8 cups) Ambulatory Orders: Basic Metabolic Panel (Routine) Timeframe: 20200619 Location: Determined by Patient Ordered By: Jayshree Quiros Attending Provider Instructions: Mr Kowalski. You came to the hospital complaining of worsening abdominal distention. You were evaluated and found to have liver cirrhosis with ascites (fluid in your belly) and jaundice. You 6liters of fluid removed from your belly. You also had acute kidney failure. You were managed with the [employer] (Kidney Doctor) and [employer] (Stomach/liver doctor) while you are in the hospital. You are being discharged on new medications including diuretics (water pills) called lasix (or furosemide) and aldactone (or spironolactone). You are also started on potassium pills due to low potassium. Please ensure that you take all medications as prescribed. Please do the blood test called BMP (Basic metabolic Panel) next week to monitor your potassium and kidney function. Please follow up the results with your Primary Doctor and Kidney Doctor. It is extremely important that you follow up with the Super[employer] and [employer] in the office. Please follow up with your Primary Doctor. Please adhere to fluid restriction instructions and other instructions provided regarding your kidney and liver problems. Please avoid unprescribed medications including NSAIDS (such as ibuprofen, alleve, etc). It was a pleasure taking care of you. Pending Studies at Discharge: Yes Stand-Alone Forms: My [employer], Smoking Cessation Medications and DC Order Prescriptions: New potassium chloride [Klor-Con M20] 20 mEq Tablet,Er Particles/Crystals 20 meq PO BID 30 Days Qty: 60 RF: 0 furosemide [Lasix] 40 mg tablet 40 mg PO DAILY Qty: 30 RF: 0 spironolactone 50 mg tablet 50 mg PO DAILY Qty: 30 RF: 0 Discontinued vitamin A 8,000 unit Capsule 0 unit PO DAILY RF: 0 Fish Oil Capsule 0 mg PO QAM RF: 0 Discharge Orders: Discharge Order (Routine); Ordered 06/15/20 Ordered By: Jayshree Fang/Other Patient Handouts: Treating Cirrhosis, Furosemide tablets, Spironolactone tablets Admission Data Admit Date/Time: 06/12/20 19:55 Attending Provider: Jayshree Tejeda I. Admit Provider: Enrique Weiss Primary Care Provider: PCP,NO Other Providers: Jesus Pastrana ; Ronna Barahona ; Brandi Reagan ; Tuan Serrano Other Interventions: Discharge Summary Assessment (RN) Last Done: 06/15/20 11:05
[2020-06-16 10:23] LABS: ANA Pattern Nuclear, Homogeneous; ANA Pattern 2 Nuclear, Speckled
[2020-06-16 14:36] LABS: Smooth Muscle Antibody POSITIVE (NEGATIVE)
[2020-06-16 14:45] LABS: Smooth Muscle Ab Titer 1:20 titer (<1:20)
== END 2020-06-15 12:15 | disposition home or self-care (01) | DRG 432 ==
LOC: ED 13:02 → EDINP 19:55 → SUATTDRO 19:55 → 2S 19:55